=== PATIENT | male | born 1950 | race Caucasian/White ===

== ENCOUNTER 2017-03-14 16:23 | Emergency (ER) | payer OTHER ==
[2017-03-14 16:31] VITALS: TEMP 98.4
--- NOTE | 2017-03-14 16:36 | EDPHY ---
H & P Stated Complaint: Flu like sxs ~1mo;sent by PCP for eval;abnl labs today (see report) Time Seen by Provider: 03/14/17 16:35 Source: Patient - Medical/Surgical History Other PMH: cardiac stents - Social History Smoking Status: Current every day smoker Constitutional: Initial Vital Signs Temperature (C) 36.9 C 03/14/17 16:28 Heart Rate 69 03/14/17 16:28 Respiratory Rate 18 03/14/17 16:28 Blood Pressure 120/67 03/14/17 16:28 O2 Sat (%) 96 03/14/17 16:28 O2 Delivery Mode Room Air Allergies/Adverse Reactions: No Known Allergies Allergy (Unverified 03/14/17 16:27) Home Medications: Medication Instructions Recorded Atorvastatin Calcium [Lipitor 40 40 mg PO 03/14/17 mg (*)] Clopidogrel Bisulfate [Plavix (*)] 75 mg PO DAILY 03/14/17 Medical Decision Making - Diagnostics Imaging Results: Imaging Impressions Chest/Thorax CTA 03/14/17 16:51 Impression: 1. No evidence of thrombopulmonary embolic disease. 2. Right lower lobe mass-like consolidation with low attenuation may represent necrotic malignancy versus phlegmon evolving pulmonary abscess. 3. Small to moderate layering right pleural right pleural effusion. 4. 6 mm left lower lobe pulmonary nodule. Findings discussed with Emergency Department physician, Christiano Redd MD at 03/14/2017 18:00. Imaging: Discussed imaging studies w/ scallop cutter Radiologist ED Course/Re-evaluation: CHIEF COMPLAINT: Elevated d-dimer, cough, chest pain. HISTORY OF PRESENT ILLNESS: The patient is a 66-year-old male, sent by Dr. Bellamy because of chest pain and elevated D-dimer. The patient reports productive cough for the past month. He was placed on 3 various antibiotics for possible pneumonia, with no improvement of his symptoms. He saw Dr. Bellamy and had an elevated D-Dimer. He continues to complain of chest pain and productive cough with associated shortness of breath. He denies fever or chills. REVIEW OF SYSTEMS: A 10 point review of systems was performed and is negative with the exception of the elements mentioned in the history of present illness. PHYSICAL EXAM: HR, BP, O2 Sat, RR. Temp noted General Appearance: Alert, well hydrated, appropriate, and non-toxic appearing. Head: Atraumatic without scalp tenderness or obvious injury Eyes: Pupils equal, round, reactive to light and accommodation, EOMI, no trauma , no injection. Ears: Clear bilaterally, no perforation, normal landmarks Nose: Atraumatic, no rhinorrhea, clear. Throat: There is no erythema or exudates, no lesions, normal tonsils, mucus membranes moist. Neck: Supple, 2+ carotid upstroke, nontender, no lymphadenopathy. Respiratory: Coarse rhonchi through all desir with no focal decrease. Cardiovascular: Regular rate and rhythm, no murmurs, rubs, or gallops. Bilateral carotid, radial, dorsalis pedis, and posterior tibial pulses intact. Good capillary refill all extremities. Gastrointestinal: Abdomen is soft, nontender, non-distended, no masses, no rebound, no guarding, no peritoneal signs. Musculoskeletal: Normal active ROM of all extremities, atraumatic. Neurological: Alert, appropriate, and interactive. The patient has normal DTRs and non-focal cranial nerves, motor, sensory, and cerebellar exam. Skin: No rashes, good turgor, no nodules on palpation. Past medical history: Hypertension, Coronary artery disease with stents. Past surgical history: Cardiac stents. Family history: Noncontributory. Social history: Cigarette smoker (1-2 packs per day). Retired. . DIAGNOSTICS/PROCEDURES/CRITICAL CARE TIME: CT angiogram shows right lower lobe mass-like consolidation with low attenuation may represent necrotic malignancy versus phlegmon evolving pulmonary abscess. Small to moderate layering right pleural right pleural effusion. 4. 6 mm left lower lobe pulmonary nodule. DIFFERENTIAL DIAGNOSIS: The differential diagnosis for the patient's chest pain included but was not limited to myocardial ischemia, pulmonary embolus, chest wall pain, pleural inflammation, and pulmonary infectious causes. MEDICAL DECISION MAKING: Patient sent here by Dr. Bellamy with elevated D-dimer. The patient has had productive cough, chest pain, and increased shortness of breath for the past month. His symptoms have not improved despite antibiotic treatment. Plan for CT angiogram due to elevated d-dimer (as outpatient) and shortness of breath. ISTAT ordered. Patient received albuterol inhaler due to coarse rhonchi throughout. CT angiogram showed that the patient either has pulmonary mass or pulmonary abscess with post-obstructive pneumonia. The patient's chronic infection for the past month and inability to improve with antibiotics suggests possible mass or abscess, it is unclear. The patient is not hypoxic 95% on room air, vitals are stable, patient is not toxic appearing. 6:15 p.m.: I spoke to Dr. Adames, Pulmonology, he will see the patient in his office tomorrow. 6:20 p.m.: I spoke to Dr. Bellamy's CONDENSER OPERATOR, she is aware of the findings. - Data Points Laboratory Results: 03/14/17 17:05 POC Hgb 15.3 gm/dL gm/dL (13.7-17.5) POC Hct 45 % % (40-51) POC Sodium 138 mEq/L mEq/L (134-144) POC Potassium 3.7 mEq/L mEq/L (3.3-5.0) POC Chloride 103 mEq/L mEq/L (97-110) POC BUN 14 mg/dL mg/dL (7-23) POC Creatinine 0.7 mg/dL mg/dL (0.7-1.3) POC Glucose 81 mg/dL mg/dL (70-100) Medications Given: Discontinued Medications Albuterol/Ipratropium (Duoneb) 3 ml IH EDNOW ONE Stop: 03/14/17 16:51 Last Admin: 03/14/17 16:56 Dose: 3 ml Point of Care Test Results: 03/14/17 17:05 POC Sodium 138 POC Potassium 3.7 POC Chloride 103 POC BUN 14 POC Creatinine 0.7 POC Glucose 81 Departure - Departure Disposition: Home, Routine, Self-Care Clinical Impression: post obstructive pneumonia Pneumonia Qualifiers: Pneumonia type: due to unspecified organism Laterality: right Lung location: unspecified part of lung Qualified Code(s): J18.9 - Pneumonia, unspecified organism Condition: Good Instructions: Pneumonia (ED) Additional Instructions: Follow up with the test lead application testing Dr. Adames tomorrow. His office will call you to schedule an appointment. If you do not hear from them, please call them. Referrals: DREW BELLAMY [Primary Care Provider] - As per Instructions Logan Adames MD [Medical Doctor] - As per Instructions Report Scribed for: Christiano Redd Report Scribed by: Josephine Castañeda Date of Report: 03/14/17 Time of Report: 16:53
[2017-03-14] MEDS ORDERED: IPRATROPIUM/ALBUTEROL 3 ML DEYVIAL IH ONE (16:50)
[2017-03-14] MEDS ORDERED: IOPAMIDOL (ISOVUE 370) 100 ML BTL IV ONE (17:02)
[2017-03-14 18:38] VITALS: BP 118/70; PULSE 64; RESP 17; O2SAT 94
== END 2017-03-14 18:38 | disposition home or self-care (01) ==
DX: J18.9 Pneumonia, unspecified organism (principal); F17.200 Nicotine dependence, unspecified, uncomplicated; Z95.5 Presence of coronary angioplasty implant and graft
CPT/HCPCS: 71275; 99285; Q9967; 82947-QW

== ENCOUNTER 2017-03-31 13:04 | Inpatient (IN) | payer OTHER ==
[2017-03-31 13:21] LABS: % IMMATURE GRANULYOCYTES 0.7 % (0.0-1.1); ADD DIFF? NO; ADD MORPH? NO; ADD SCAN? NO; ATYPICAL LYMPHOCYTE FLAG 0 (0-99); FRAGMENT RBC FLAG 0 (0-99); HEMATOCRIT 44.5 % (40.0-51.0); HEMOGLOBIN 15.2 g/dL (13.7-17.5); LEFT SHIFT FLG 0 (0-99); LIPEMIA HEMOLYSIS FLAG 90 (0-99); MEAN CELL HEMOGLOBIN 32.4 pg (27.9-34.1); MEAN CELL HEMOGLOBIN CONCENTR. 34.2 g/dL (32.4-36.7); MEAN CELL VOLUME 94.9 fL (81.5-99.8); MEAN PLATELET VOLUME 8.8 fL (8.7-11.7); PLATELET CLUMPS FLAG 10 (0-99); PLATELET COUNT 387 10^3/uL (150-400); RED BLOOD CELL COUNT 4.69 10^6/uL (4.40-6.38); RED CELL DISTRIBUTION WIDTH 13.1 % (11.5-15.2)
--- NOTE | 2017-03-31 13:31 | CPEKG ---
Heart Rate: 77 RR Interval: 779 P-R Interval: 124 QRSD Interval: 84 QT Interval: 372 QTC Interval: 421 P Clifton: 32 QRS Clifton: 54 T Wave Clifton: 7 EKG Severity - NORMAL ECG - EKG Impression: SINUS RHYTHM Electronically Signed By: Khang Shrestha 31-Mar-2017 14:09:08
[2017-03-31 13:33] LABS: ALANINE AMINOTRANSFERASE 174 IU/L (21-72); ALBUMIN 3.5 g/dL (3.5-5.0); ALKALINE PHOSPHATASE 185 IU/L (38-126); ANION GAP 16 mEq/L (8-16); ASPARTATE AMINOTRANSFERASE 91 IU/L (17-59); BILIRUBIN,TOTAL 0.7 mg/dL (0.1-1.4); CALCIUM 9.2 mg/dL (8.5-10.4); CARBON DIOXIDE 22 mEq/l (22-31); CHLORIDE 102 mEq/L (97-110); CREATININE 0.8 mg/dL (0.7-1.3); GLOMERULAR FILTRATION RATE > 60; GLUCOSE 125 mg/dL (70-100); POTASSIUM 4.4 mEq/L (3.5-5.2); SODIUM 140 mEq/L (134-144); TOTAL PROTEIN 6.2 g/dL (6.3-8.2)
[2017-03-31 13:43] LABS: TROPONIN I < 0.012 ng/mL (0.000-0.034)
[2017-03-31] MEDS ORDERED: HYDROmorphONE/DILAUDID 1 MG/ML INJ IVP ONE ×2 (14:01→15:19)
--- NOTE | 2017-03-31 14:08 | EDPHY ---
H & P Stated Complaint: CP, SOB, hx lung mass Time Seen by Provider: 03/31/17 13:42 HPI/ROS: CHIEF COMPLAINT: Right-sided rib pain HISTORY OF PRESENT ILLNESS: The patient is a 66-year-old man with a history of smoking and COPD as well as cardiac disease with 2 stents on Plavix who comes to the emergency department brought by EMS for increasing right-sided chest pain. The patient has had chest pain for the last several months. He was seen here a week ago after positive D-dimer with his primary and had a CT scan done that revealed a 4 x 3 cm right-sided lung mass. He followed up with Dr. Tiago Ray from pulmonology who scheduled a bronchoscopy and pleurocentesis on the of this month. Over the last 24 hr the patient states that his pain has become unbearable. He cannot take normal breaths. He has not had a fever. His cough is not worsened. He does not feel short of breath. He also feels that he may have some swelling around his ankles. No chest pain or tightness. REVIEW OF SYSTEMS: Constitutional: denies: chills, fever, recent illness, recent injury EENTM: denies: blurred vision, double vision, nose congestion Respiratory: Right-sided chest pain Cardiac: denies: chest pain, irregular heart rate, lightheadedness, palpitations Gastrointestinal/Abdominal: denies: abdominal pain, diarrhea, nausea, vomiting, blood streaked stools Genitourinary: denies: dysuria, frequency, hematuria, pain Musculoskeletal: denies: joint pain, muscle pain Skin: denies: lesions, rash, jaundice, bruising Neurological: denies: headache, numbness, paresthesia, tingling, dizziness, weakness Hematologic/Lymphatic: denies: blood clots, easy bleeding, easy bruising Immunologic/allergic: denies: HIV/AIDS, transplant EXAM: GENERAL: Well-appearing, well-nourished and in no acute distress. HEAD: Atraumatic, normocephalic. EYES: Pupils equal round and reactive to light, extraocular movements intact, sclera anicteric, conjunctiva are normal. ENT: TMs normal, nares patent, oropharynx clear without exudates. Moist mucous membranes. NECK: Normal range of motion, supple without lymphadenopathy or JVD. LUNGS: Distant breath sounds on the right, No wheezes rales or rhonchi. HEART: Regular rate and rhythm without murmurs, rubs or gallops. ABDOMEN: Soft, nontender, normoactive bowel sounds. No guarding, no rebound. No masses appreciated. BACK: No CVA tenderness, no spinal tenderness, step-offs or deformities EXTREMITIES: Normal range of motion, no pitting or edema. No clubbing or cyanosis. NEUROLOGICAL: Cranial nerves II through XII grossly intact. Normal speech, normal gait. 5/5 strength, normal movement in all extremities, normal sensation PSYCH: Normal mood, normal affect. SKIN: Warm, dry, normal turgor, no visible rashes or lesions. Source: Patient Exam Limitations: No limitations - Medical/Surgical History Hx Asthma: No Hx Chronic Respiratory Disease: No Hx Diabetes: No Hx Cardiac Disease: Yes Hx Renal Disease: No Hx Cirrhosis: No Hx Alcoholism: No Hx HIV/AIDS: No Hx Splenectomy or Spleen Trauma: No Other PMH: cardiac stents, MIx2, Lung mass - Family History Significant Family History: No pertinent family hx - Social History Smoking Status: Heavy smoker Alcohol Use: Sober Drug Use: None Constitutional: Initial Vital Signs Temperature (C) 37.1 C 03/31/17 13:12 Heart Rate 80 03/31/17 13:12 Respiratory Rate 30 H 03/31/17 13:12 Blood Pressure 141/89 H 03/31/17 13:12 O2 Sat (%) 88 L 03/31/17 13:12 O2 Delivery Mode Nasal Cannula Allergies/Adverse Reactions: No Known Allergies Allergy (Verified 03/31/17 13:12) Home Medications: Medication Instructions Recorded Clopidogrel Bisulfate [Plavix (*)] 75 mg PO DAILY 03/14/17 Aspirin [Aspirin 81mg (*)] 81 mg PO DAILY 03/31/17 Atorvastatin Calcium [Lipitor 10 10 mg PO HS 03/31/17 mg (*)] Medical Decision Making - Diagnostics EKG Interpretation: An EKG obtained and was read and documented in trace view. Please see trace view for full reading and report. Sinus rhythm, no acute ischemic changes, normal amplitude Imaging Results: Imaging Impressions Chest X-Ray 03/31/17 14:05 Impression: Worsening pulmonary consolidation and atelectasis on the right, with enlarging right pleural effusion compared to March 14. I discussed results with Dr. Khang Rozeski at 1545 hours. Imaging: Discussed imaging studies w/ call center representative Radiologist Procedures: Bedside echo, no significant pericardial effusion seen. ED Course/Re-evaluation: 3:00 p.m. we discussed the test results. His effusion is significantly larger. He desaturates to 87% on room air. He will need to be admitted for pain control, desaturations and thoracentesis. I have paged interventional Radiology and hospital service. 3:20 p.m. I discussed the case with Dr. Gina Avila who will admit to medical service. Dr. Hobbs is in a procedure but will call back when he is done. I discussed the case with Dr. Hobbs who would prefer to wait a day or 2 for the patient's Plavix to wear off. Differential Diagnosis: Partial list of the Differential diagnosis considered include but were not limited to; pleural effusion, pneumonia and although unlikely based on the history and physical exam, I also considered acute coronary disease, PE, dissection. - Data Points Laboratory Results: Laboratory Results 03/31/17 13:00 03/31/17 13:00 03/31/17 03/31/17 03/31/17 13:00 13:00 13:00 WBC RBC Hgb Hct MCV MCH MCHC RDW Plt Count MPV Neut % (Auto) Lymph % (Auto) [place] % (Auto) Eos % (Auto) Baso % (Auto) Nucleat RBC Rel Count Absolute Neuts (auto) Absolute Lymphs (auto) Absolute Monos (auto) Absolute Eos (auto) Absolute Basos (auto) Absolute Nucleated RBC Immature Gran % Immature Gran # PT 15.2 SEC H SEC (12.0-15.0) INR 1.18 H (0.83-1.16) APTT 26.2 SEC SEC (23.0-38.0) Sodium 140 mEq/L mEq/L (134-144) Potassium 4.4 mEq/L mEq/L (3.5-5.2) Chloride 102 mEq/L mEq/L (97-110) Carbon Dioxide 22 mEq/l mEq/l (22-31) Anion Gap 16 mEq/L mEq/L (8-16) BUN 13 mg/dL mg/dL (7-23) Creatinine 0.8 mg/dL mg/dL (0.7-1.3) Estimated GFR > 60 Glucose 125 mg/dL H mg/dL (70-100) Calcium 9.2 mg/dL mg/dL (8.5-10.4) Total Bilirubin 0.7 mg/dL mg/dL 0.7 mg/dL mg/dL (0.1-1.4) (0.1-1.4) Conjugated Bilirubin 0.4 mg/dL mg/dL (0.0-0.5) Unconjugated Bilirubin 0.3 mg/dL mg/dL (0.0-1.1) AST 93 IU/L H IU/L 91 IU/L H IU/L (17-59) (17-59) ALT 171 IU/L H IU/L 174 IU/L H IU/L (21-72) (21-72) Alkaline Phosphatase 188 IU/L H IU/L 185 IU/L H IU/L (38-126) (38-126) Troponin I < 0.012 ng/mL ng/mL (0.000-0.034) Total Protein 6.2 g/dL L g/dL 6.2 g/dL L g/dL (6.3-8.2) (6.3-8.2) Albumin 3.5 g/dL g/dL 3.5 g/dL g/dL (3.5-5.0) (3.5-5.0) Lipase 57 IU/L IU/L (23-300) 03/31/17 13:00 WBC 14.85 10^3/uL H 10^3/uL (3.80-9.50) RBC 4.69 10^6/uL 10^6/uL (4.40-6.38) Hgb 15.2 g/dL g/dL (13.7-17.5) Hct 44.5 % % (40.0-51.0) MCV 94.9 fL fL (81.5-99.8) MCH 32.4 pg pg (27.9-34.1) MCHC 34.2 g/dL g/dL (32.4-36.7) RDW 13.1 % % (11.5-15.2) Plt Count 387 10^3/uL 10^3/uL (150-400) MPV 8.8 fL fL (8.7-11.7) Neut % (Auto) 84.9 % H % (39.3-74.2) Lymph % (Auto) 8.2 % L % (15.0-45.0) [place] % (Auto) 5.4 % % (4.5-13.0) Eos % (Auto) 0.3 % L % (0.6-7.6) Baso % (Auto) 0.5 % % (0.3-1.7) Nucleat RBC Rel Count 0.0 % % (0.0-0.2) Absolute Neuts (auto) 12.62 10^3/uL H 10^3/uL (1.70-6.50) Absolute Lymphs (auto) 1.22 10^3/uL 10^3/uL (1.00-3.00) Absolute Monos (auto) 0.80 10^3/uL 10^3/uL (0.30-0.80) Absolute Eos (auto) 0.04 10^3/uL 10^3/uL (0.03-0.40) Absolute Basos (auto) 0.07 10^3/uL 10^3/uL (0.02-0.10) Absolute Nucleated RBC 0.00 10^3/uL 10^3/uL (0-0.01) Immature Gran % 0.7 % % (0.0-1.1) Immature Gran # 0.10 10^3/uL 10^3/uL (0.00-0.10) PT INR APTT Sodium Potassium Chloride Carbon Dioxide Anion Gap BUN Creatinine Estimated GFR Glucose Calcium Total Bilirubin Conjugated Bilirubin Unconjugated Bilirubin AST ALT Alkaline Phosphatase Troponin I Total Protein Albumin Lipase Medications Given: Oxycodone HCl (Oxycodone Ir) 5 - 10 mg PO Q4 PRN PRN Reason: Pain, Severe Able to Take PO Stop: 04/10/17 16:34 Last Admin: 03/31/17 18:02 Dose: 10 mg Discontinued Medications Hydromorphone HCl (Dilaudid) 1 mg IVP EDNOW ONE Stop: 03/31/17 14:02 Last Admin: 03/31/17 14:05 Dose: 1 mg Hydromorphone HCl (Dilaudid) 1 mg IVP EDNOW ONE Stop: 03/31/17 15:20 Last Admin: 03/31/17 15:23 Dose: 1 mg Sodium Chloride (Ns) 1,000 mls @ 0 mls/hr IV ONCE ONE; Wide Open PRN Reason: Protocol Stop: 03/31/17 14:34 Last Admin: 03/31/17 14:48 Dose: 1,000 mls Metoclopramide HCl (Reglan Injection) 10 mg IVP EDNOW ONE Stop: 03/31/17 14:34 Last Admin: 03/31/17 19:09 Dose: Not Given Departure - Departure Disposition: [facility] Acute Clinical Impression: Pleural effusion, right Condition: Fair
[2017-03-31 14:25] LABS: INR 1.18 (0.83-1.16); PROTIME(PATIENT) 15.2 SEC (12.0-15.0)
[2017-03-31 14:26] LABS: APTT 26.2 SEC (23.0-38.0)
[2017-03-31 14:31] LABS: ALBUMIN 3.5 g/dL (3.5-5.0); BILIRUBIN,TOTAL 0.7 mg/dL (0.1-1.4); BILIRUBIN-CONJUGATED 0.4 mg/dL (0.0-0.5); BILIRUBIN-UNCONJUGATED 0.3 mg/dL (0.0-1.1); TOTAL PROTEIN 6.2 g/dL (6.3-8.2)
[2017-03-31] MEDS ORDERED: METOCLOPRAMIDE 10 MG/2 ML VIAL IVP ONE (14:33)
[2017-03-31] MEDS ORDERED: NS 1,000 ML IV ONE (14:33)
[2017-03-31] MEDS ORDERED: LIDOCAINE 1% 300 MG/30 ML SDV ONE (15:43)
[2017-03-31] MEDS ORDERED: ACETAMINOPHEN 325 MG TAB PO PRN (16:35)
[2017-03-31] MEDS ORDERED: HYDROmorphone HCL/NS/PF 0.4 MG/2 ML SYR IVP PRN (16:35)
[2017-03-31] MEDS ORDERED: ONDANSETRON 4 MG/2 ML VIAL IVP PRN (16:35)
--- NOTE | 2017-03-31 17:39 | GHP ---
[f rep st] HISTORY AND PHYSICAL DATE OF ADMISSION: 03/31/2017 CHIEF COMPLAINT: Right-sided chest pain. HISTORY: Alfred is a 66-year-old male, who has had a mild right-sided chest pain for many months. He w as seen in the emergency room on March [address] scan of the chest that was negative for p ulmonary embolus but did show a mass. He saw Dr. Ray in the office as an outpatient and has a bron choscopy scheduled for April 05. He is on Plavix for history of coronary stents, May 2016 an d the plan was for him to be off Plavix for 5 days. His last dose of Plavix was yesterday morning. He now re-presents to the emergency room for severe worsening pain. For the last 24 hours the pain h as gone from mild to extraordinarily severe and intolerable. He has had tactile fevers at home but h as not measured them. He has had a productive cough for the last 6 weeks. He noticed new feet and a nkle edema. Pain is very pleuritic and he is now forced to take very shallow breaths. He has had 8 pounds unintentional weight loss and has had poor p.o. intake over the last month. PAST MEDICAL HISTORY: 1. COPD. 2. Coronary artery disease, status post stents, the first 4 years ago and more recently, in May 2016 at [facility]. MEDICATIONS: Please see computer record for full detailed list. ALLERGIES: No known drug allergies. SOCIAL HISTORY: He has been a smoker for 50 years, 1 pack per day. No alcohol. He lives alone. Hi s son lives in [place]. REVIEW OF SYSTEMS: Complete review of systems obtained. Review of systems negative on constitutiona l, HEENT, GI, pulmonary, cardiovascular, , hematology, skin, muscular, endocrine, psych, except for positives and negatives as noted in HPI. FAMILY HISTORY: Reviewed, noncontributory to presenting complaint. PHYSICAL EXAMINATION: GENERAL: Well-developed, well-nourished male, in no acute distress. VITAL SI GNS: Temperature 37.1, pulse 76, respirations 30, blood pressure 136/83, saturating 88% on room air. EYES: Normal conjunctivae. Pupils react to light. ENT: Normal ears and nose. Hearing intact. Normal teeth. Oropharynx moist. NECK: Trachea midline. No thyromegaly. CHEST: Normal effort. AKIKO NGS: Clear to auscultation bilaterally. CARDIOVASCULAR: Regular rhythm. No murmur. No lower extrem ity edema. ABDOMEN: Soft, nontender. No hepatosplenomegaly. SKIN: Warm, dry, intact. No rash. MUSCULOSKELETAL: No cyanosis or clubbing. Strength 5/5 upper and lower extremities. NEUROLOGIC: C ranial nerves intact. Normal sensation to light touch. PSYCH: Alert and oriented x3. Normal affec t. Normal judgment. Normal memory. LABORATORY DATA: White count 14.85, hematocrit 44.5, platelets 387. Sodium 140, potassium 4.4, chlo ride 102, bicarb 22, BUN 13, creatinine 0.8, glucose 115, AST 91, ALT 174, alkaline phosphatase is 18 5, troponins negative. INR is 1.18. EKG viewed by me. My personal interpretation is normal sinus rhythm. No ST or T wave changes. Ches t x-ray shows a moderate right-sided effusion. Old chart reviewed. CTA of the chest done February 242016, there was no PE. He has a right lower lobe masslike consolidation. Differential diagnosis i s necrotic malignancy versus phlegmon versus pulmonary abscess and at that time, he had only a small to moderate effusion. ASSESSMENT/PLAN: 1. Right lower lobe masslike consolidation. Differential diagnosis is a necrotic malignancy versus a pulmonary abscess. He has not yet been treated with antibiotics as an outpatient. So presumably t his is more suspicious for malignancy than infection. I have spoken with Dr. Cobian. We will make him n.p.o. after midnight with plan for bronchoscopy. Will continue to hold off on antibiotics until thi s can be further clarified as he is quite nontoxic appearing at this time. He does, however, have a leukocytosis so I will check blood cultures. Rule out sepsis and consider empiric antibiotics if inf ection becomes more probable. 2. Increasing right-sided pleural effusion. He needs a thoracentesis but IR is recommending he be o ff Plavix for 3 days unless it becomes emergent. 3. Acute respiratory failure as evidenced by respiratory rate of 30 and 88% on room air on presentat ion. He is now stable on nasal cannula oxygen. 4. Tobacco dependence. Will offer nicotine patch. 5. Increased liver function tests. Hepatic metastasis is a possibility. We will check an abdominal ultrasound. CODE STATUS: DNR. ADMISSION STATUS: 1. Will admit to inpatient as he is medically complex. Anticipate greater than 2 midnights for diag nosis. 2. Deep venous thrombosis prophylaxis. He has pending procedures so will hold off for now. /[id number]/MODL
[2017-03-31] MEDS: oxyCODONE IR 5 MG TAB PO PRN (18:02)
[2017-03-31 19:26] LABS: LACTATE DEHYDROGENASE 481 IU/L (313-618)
[2017-03-31] MEDS: traMADol 50 MG TAB PO PRN (20:37)
[2017-03-31] MEDS: ATORVASTATIN CALCIUM 10 MG TAB PO SCH (20:37)
[2017-04-01] MEDS: oxyCODONE IR 5 MG TAB PO PRN ×4 (00:33→22:42)
[2017-04-01 05:24] LABS: ABSOLUTE IMMATURE GRANULOCYTES 0.28 10^3/uL (0.00-0.10); ADD DIFF? NO; ADD MORPH? NO; ADD SCAN? NO; ATYPICAL LYMPHOCYTE FLAG 0 (0-99); FRAGMENT RBC FLAG 0 (0-99); HEMATOCRIT 43.7 % (40.0-51.0); HEMOGLOBIN 14.8 g/dL (13.7-17.5); LEFT SHIFT FLG 10 (0-99); LIPEMIA HEMOLYSIS FLAG 90 (0-99); MEAN CELL HEMOGLOBIN 32.5 pg (27.9-34.1); MEAN CELL HEMOGLOBIN CONCENTR. 33.9 g/dL (32.4-36.7); MEAN PLATELET VOLUME 8.9 fL (8.7-11.7); PLATELET CLUMPS FLAG 0 (0-99); PLATELET COUNT 344 10^3/uL (150-400); RED BLOOD CELL COUNT 4.55 10^6/uL (4.40-6.38); RED CELL DISTRIBUTION WIDTH 13.2 % (11.5-15.2)
[2017-04-01 05:27] LABS: ALANINE AMINOTRANSFERASE 119 IU/L (21-72); ALBUMIN 2.7 g/dL (3.5-5.0); ALKALINE PHOSPHATASE 148 IU/L (38-126); ANION GAP 9 mEq/L (8-16); ASPARTATE AMINOTRANSFERASE 56 IU/L (17-59); BILIRUBIN,TOTAL 0.4 mg/dL (0.1-1.4); BILIRUBIN-CONJUGATED 0.3 mg/dL (0.0-0.5); BILIRUBIN-UNCONJUGATED 0.1 mg/dL (0.0-1.1); CALCIUM 8.6 mg/dL (8.5-10.4); CARBON DIOXIDE 22 mEq/l (22-31); CHLORIDE 106 mEq/L (97-110); CREATININE 0.8 mg/dL (0.7-1.3); GLOMERULAR FILTRATION RATE > 60; GLUCOSE 113 mg/dL (70-100); POTASSIUM 5.5 mEq/L (3.5-5.2); SODIUM 137 mEq/L (134-144); TOTAL PROTEIN 4.9 g/dL (6.3-8.2)
[2017-04-01 09:13] LABS: POTASSIUM 4.7 mEq/L (3.5-5.2)
--- NOTE | 2017-04-01 10:19 | HOSPPROG ---
Hospitalist Progress Note Assessment/Plan: RLL consolidation / ?mass - Consider necrotic malignancy versus pulmonary abscess. 3.5 LPM O2 with tachypnea and increased pain. BCx's pending. -discussed with ID, will broaden to Ertapenem for anaerobic coverage -discussed with pulm, likely needs bronch at some point Pleural effusion - some concern for empyema with increasing wbc's and worsening clinical condition -discussed with IR, off plavix >48 hrs, will proceed with thora today due to worsening condition -pleural fluid with 8,700 wbc's, 98% Pourer, gram stain pending - broaden to Ertapenem as above. Surgery contacted regarding consult to consider need for VATS CAD with stenting in 05/2016 - he had a NIYA placed in LAD in 05/2016. -ASA and Plavix held for planned procedures -will d/w Dr. Tinoco' team, ok to be off plavix x5 days -resume ASA in am COPD - No wheezing, prn nebs Tobacco abuse - encourage cessation DNR DVT PPLX - Lovenox Dispo - cont inpt Subjective: Pt has increased pain, coughing quite a bit, more tachypneic and feels sicker. No fevers. +SOB. Objective: Vital Signs Temp Pulse Resp BP Pulse Ox 36.9 C 70 29 H 117/73 90 L 04/01/17 08:08 04/01/17 08:08 04/01/17 08:08 04/01/17 08:08 04/01/17 08:08 Laboratory Results 04/01/17 05:02 04/01/17 08:55 03/31/17 04/01/17 04/02/17 05:59 05:59 05:59 Intake Total 1000 Output Total 275 Balance 725 PT 15.2 SEC (12.0-15.0) H 03/31/17 13:00 INR 1.18 (0.83-1.16) H 03/31/17 13:00 - Physical Exam Constitutional: no apparent distress Eyes: PERRL Ears, Nose, Mouth, Throat: moist mucous membranes Cardiovascular: regular rate and rhythym, no murmur, rub, or gallop Respiratory: no respiratory distress, other (diminished air movement in right lung) Gastrointestinal: normoactive bowel sounds, soft, non-tender abdomen Skin: warm Musculoskeletal: full muscle strength Neurologic: AAOx3 Psychiatric: interacting appropriately ICD10 Worksheet Patient Problems: Problems Problem Status Onset Pleural effusion, right Acute
[2017-04-01] MEDS ORDERED: AZITHROMYCIN 250 MG TAB PO SCH (10:30)
[2017-04-01] MEDS: NICOTINE 14 MG/24 HR PATCH TD SCH (10:32)
--- NOTE | 2017-04-01 10:57 | PDMN ---
Medical Necessity Medical necessity: est los>2mn for RLL masslike consolidation , necrotic malignancy vs pulmonary abscess, increasing R pleural effusion, acute resp failure and elevated LFT's; admit for bronch, r/o sepsis, follow cx's, thoracentesis when off Plavix x 3 days; comorbid COPD, CAD; per order and H&P 03/31/17
--- NOTE | 2017-04-01 11:47 | ASMTCMCOM ---
CM Note CM Note Notes: Reviewed chart and discussed w/RN. Pt admitted w/RLL mass. He will go for bonchoscopy today. He normally lives alone, has son in [place]. DC needs not clear yet. CM will follow. Date Signed: 04/01/2017 11:46 AM Electronically Signed By:Lien Levin RN
[2017-04-01] MEDS ORDERED: LIDOCAINE 1% 300 MG/30 ML SDV ONE (12:41)
[2017-04-01 15:06] LABS: LACTATE DEHYDROGENASE 372 IU/L (313-618)
[2017-04-01 15:26] LABS: LD, PLEURAL FLUID 1276 IU/L
[2017-04-01] MEDS: ERTAPENEM 1 GM VIAL IVP SCH (18:44)
[2017-04-01] MEDS: ATORVASTATIN CALCIUM 10 MG TAB PO SCH (20:22)
[2017-04-02] MEDS: oxyCODONE IR 5 MG TAB PO PRN ×4 (04:41→23:19)
[2017-04-02 05:30] LABS: % IMMATURE GRANULYOCYTES 0.8 % (0.0-1.1); ABSOLUTE IMMATURE GRANULOCYTES 0.21 10^3/uL (0.00-0.10); ADD DIFF? NO; ADD MORPH? NO; ADD SCAN? NO; ATYPICAL LYMPHOCYTE FLAG 0 (0-99); FRAGMENT RBC FLAG 0 (0-99); HEMOGLOBIN 13.4 g/dL (13.7-17.5); LEFT SHIFT FLG 10 (0-99); LIPEMIA HEMOLYSIS FLAG 80 (0-99); MEAN CELL HEMOGLOBIN 32.2 pg (27.9-34.1); MEAN CELL HEMOGLOBIN CONCENTR. 33.5 g/dL (32.4-36.7); MEAN CELL VOLUME 96.2 fL (81.5-99.8); PLATELET CLUMPS FLAG 0 (0-99); PLATELET COUNT 357 10^3/uL (150-400); RED BLOOD CELL COUNT 4.16 10^6/uL (4.40-6.38); RED CELL DISTRIBUTION WIDTH 13.2 % (11.5-15.2)
[2017-04-02 05:43] LABS: ALANINE AMINOTRANSFERASE 103 IU/L (21-72); ALBUMIN 2.6 g/dL (3.5-5.0); ALKALINE PHOSPHATASE 158 IU/L (38-126); ANION GAP 11 mEq/L (8-16); ASPARTATE AMINOTRANSFERASE 59 IU/L (17-59); BILIRUBIN,TOTAL 0.2 mg/dL (0.1-1.4); CALCIUM 8.7 mg/dL (8.5-10.4); CARBON DIOXIDE 25 mEq/l (22-31); CHLORIDE 101 mEq/L (97-110); CREATININE 0.8 mg/dL (0.7-1.3); GLOMERULAR FILTRATION RATE > 60; GLUCOSE 98 mg/dL (70-100); SODIUM 137 mEq/L (134-144); TOTAL PROTEIN 4.9 g/dL (6.3-8.2)
[2017-04-02 06:21] LABS: PROCALCITONIN 0.92 ng/mL (0.02-0.10)
--- NOTE | 2017-04-02 09:57 | PDGENHP ---
History and Physical - Chief Complaint pleural effusion, lung mass - History of Present Illness Asked to evaluate the patients effusion, lung mass and Sx. Patient just underwent thoracentesis and had 1.5L drawn off. Had a CT scan done in late February which showed layering efusion. Admitted with R sided CP and effusion. Patient feels well now, states that pain has resolved and that he is breathing much easier. Still continues to smoke about 1PPD. History Information - Allergies/Home Medication List Allergies/Adverse Reactions: No Known Allergies Allergy (Verified 03/31/17 13:12) Home Medications: Clopidogrel Bisulfate [Plavix (*)] 75 mg PO DAILY 03/14/17 [Last Taken 03/30/17] Aspirin [Aspirin 81mg (*)] 81 mg PO DAILY 03/31/17 [Last Taken 03/30/17] Atorvastatin Calcium [Lipitor 10 mg (*)] 10 mg PO HS 03/31/17 [Last Taken ] I have personally reviewed and updated: family history, medical history, social history, surgical history Past Medical History: COPD, CAD with stents on plavix and ASA - Surgical History Additional surgical history: no chest surgeries - Family History Positive for: non-pertinent - Social History Smoking Status: Heavy smoker Alcohol Use: Sober Drug Use: None Review of Systems Review of Systems: ROS: 10pt was reviewed & negative except for what was stated in HPI & below Physical Exam Physical Exam: Temp Pulse Resp BP Pulse Ox 36.7 C 64 16 90/54 L 93 04/02/17 08:55 04/02/17 08:55 04/02/17 08:55 04/02/17 08:55 04/02/17 08:55 O2 (L/minute) 3 Constitutional: no apparent distress, appears nourished, not in pain Eyes: PERRL, anicteric sclera, EOMI Ears, Nose, Mouth, Throat: moist mucous membranes, hearing normal, ears appear normal, no oral mucosal ulcers Cardiovascular: regular rate and rhythym, no murmur, rub, or gallop, No edema Respiratory: other (distant R sided lung sounds inferiorly, otherwise clear ) Gastrointestinal: normoactive bowel sounds, soft, non-tender abdomen, no palpable masses Genitourinary: no bladder fullness, no bladder tenderness Skin: warm, normal color, no rashes or abrasions, no fluctuance, no induration, No mottled Musculoskeletal: full muscle strength, no muscle tenderness, normal joint ROM, no joint effusions Psychiatric: interacting appropriately, not anxious, not encephalopathic, thought process linear Lymph, Heme, Immunologic: no cervical LAD, no supraclavicular LAD Lab Data & Imaging Review 04/02/17 04:56 04/02/17 04:56 WBC 25.67 10^3/uL (3.80-9.50) H 04/02/17 04:56 RBC 4.16 10^6/uL (4.40-6.38) L 04/02/17 04:56 Hgb 13.4 g/dL (13.7-17.5) L 04/02/17 04:56 Hct 40.0 % (40.0-51.0) 04/02/17 04:56 MCV 96.2 fL (81.5-99.8) 04/02/17 04:56 MCH 32.2 pg (27.9-34.1) 04/02/17 04:56 MCHC 33.5 g/dL (32.4-36.7) 04/02/17 04:56 RDW 13.2 % (11.5-15.2) 04/02/17 04:56 Plt Count 357 10^3/uL (150-400) 04/02/17 04:56 MPV 9.0 fL (8.7-11.7) 04/02/17 04:56 Neut % (Auto) 88.1 % (39.3-74.2) H 04/02/17 04:56 Lymph % (Auto) 4.6 % (15.0-45.0) L 04/02/17 04:56 Marshall % (Auto) 6.0 % (4.5-13.0) 04/02/17 04:56 Eos % (Auto) 0.2 % (0.6-7.6) L 04/02/17 04:56 Baso % (Auto) 0.3 % (0.3-1.7) 04/02/17 04:56 Nucleat RBC Rel Count 0.0 % (0.0-0.2) 04/02/17 04:56 Absolute Neuts (auto) 22.62 10^3/uL (1.70-6.50) H 04/02/17 04:56 Absolute Lymphs (auto) 1.17 10^3/uL (1.00-3.00) 04/02/17 04:56 Absolute Monos (auto) 1.54 10^3/uL (0.30-0.80) H 04/02/17 04:56 Absolute Eos (auto) 0.05 10^3/uL (0.03-0.40) 04/02/17 04:56 Absolute Basos (auto) 0.08 10^3/uL (0.02-0.10) 04/02/17 04:56 Absolute Nucleated RBC 0.00 10^3/uL (0-0.01) 04/02/17 04:56 Immature Gran % 0.8 % (0.0-1.1) 04/02/17 04:56 Immature Gran # 0.21 10^3/uL (0.00-0.10) H 04/02/17 04:56 PT 15.2 SEC (12.0-15.0) H 03/31/17 13:00 INR 1.18 (0.83-1.16) H 03/31/17 13:00 APTT 26.2 SEC (23.0-38.0) 03/31/17 13:00 VBG Lactic Acid 1.8 mmol/L (0.7-2.1) 03/31/17 19:54 Sodium 137 mEq/L (134-144) 04/02/17 04:56 Potassium 5.0 mEq/L (3.5-5.2) 04/02/17 04:56 Chloride 101 mEq/L (97-110) 04/02/17 04:56 Carbon Dioxide 25 mEq/l (22-31) 04/02/17 04:56 Anion Gap 11 mEq/L (8-16) 04/02/17 04:56 BUN 24 mg/dL (7-23) H 04/02/17 04:56 Creatinine 0.8 mg/dL (0.7-1.3) 04/02/17 04:56 Estimated GFR > 60 04/02/17 04:56 Glucose 98 mg/dL (70-100) 04/02/17 04:56 Calcium 8.7 mg/dL (8.5-10.4) 04/02/17 04:56 Total Bilirubin 0.2 mg/dL (0.1-1.4) 04/02/17 04:56 Conjugated Bilirubin 0.3 mg/dL (0.0-0.5) 04/01/17 05:02 Unconjugated Bilirubin 0.1 mg/dL (0.0-1.1) 04/01/17 05:02 AST 59 IU/L (17-59) 04/02/17 04:56 ALT 103 IU/L (21-72) H 04/02/17 04:56 Alkaline Phosphatase 158 IU/L (38-126) H 04/02/17 04:56 Lactate Dehydrogenase 372 IU/L (313-618) 04/01/17 08:55 Troponin I < 0.012 ng/mL (0.000-0.034) 03/31/17 13:00 Total Protein 4.9 g/dL (6.3-8.2) L 04/02/17 04:56 Albumin 2.6 g/dL (3.5-5.0) L 04/02/17 04:56 Lipase 57 IU/L (23-300) 03/31/17 13:00 Procalcitonin 0.92 ng/mL (0.02-0.10) H 04/02/17 04:56 Fluid pH Cancelled 04/01/17 13:20 Fluid Meso/Macro/Marshall % 2 % 04/01/17 13:20 Fl Pathologist Review Rayne DONNELLY MD 04/01/17 13:20 Fluid Total Protein Cancelled 04/01/17 13:20 Pleural Fluid Source PLEURAL 04/01/17 13:20 Pleural Color ORANGE (STRAW/YELL) H 04/01/17 13:20 Pleural Appearance CLOUDY (CLEAR) H 04/01/17 13:20 Pleural pH 6.7 (6.8-7.6) L 04/01/17 13:20 Pleural WBC 8730 /mm3 04/01/17 13:20 Pleural RBC 6804 /MM3 04/01/17 13:20 Pleural Neutrophils 98 % 04/01/17 13:20 Pleural Total Protein 3.9 g/dL 04/01/17 13:20 Pleural LDH 1276 IU/L 04/01/17 13:20 Pleural Glucose < 20 mg/dL (55-113) L 04/01/17 13:20 Hepatitis A IgM Ab NEGATIVE (NEGATIVE) 04/01/17 05:02 Hep Bs Antigen NEGATIVE (NEGATIVE) 04/01/17 05:02 Hep B Core IgM Ab NEGATIVE (NEGATIVE) 04/01/17 05:02 Hepatitis C Antibody NEGATIVE (NEGATIVE) 04/01/17 05:02 Cytology RECEIVED 04/01/17 13:20 Visualized and Interpreted imaging results: Yes Interpretation: CXR s/p thora shows persistent fluid collection, improved. CT from February shows poss large mass in R side, layering colection Assessment & Plan Assessment: Pleural effusion, right (Acute) Plan: 66yo heavy smoker, layering effusion, likely lung mass concerning for cancer - Reviewed the patients imaging as well as results from thoracentesis. fluid analysis definitely looks like parapneumonic effusion, CT shows likely large mass concerning for Ca given the patients Hx of smoking - thora appears to be successful, still some residual fluid but clinically improved - If patient clinically declines would plan to place large bore CT fist as there was not an overly large collection on CT and likely isnt based on most recent CXR. Would use this as barometer for if he needs VATs - Needs bronch, this will allow analysis of mass and to better rule in or out cancer - will await cytology from chest fluid, if Ca may not be something that is resectable in first place but need to make diagnosis and stage appropriately.
[2017-04-02] MEDS: AMPICILLIN/SULBACTAM 3 GM in NS 100 ML IV SCH ×3 (10:20→23:20)
[2017-04-02] MEDS: ERTAPENEM 1 GM VIAL IVP SCH (10:20)
[2017-04-02] MEDS: NICOTINE 14 MG/24 HR PATCH TD SCH (10:20)
[2017-04-02] MEDS: ASPIRIN 81 MG CHEWABLE TAB PO SCH ×2 (10:20→10:28)
--- NOTE | 2017-04-02 10:34 | HOSPPROG ---
Hospitalist Progress Note Assessment/Plan: RLL consolidation / ?mass / post-obstructive PNA - Consider necrotic malignancy versus pulmonary abscess. BCx's pending. Cytology on pleural fluid pending. This may yield a diagnosis, but could still be days from results and we are currently in a plavix-free window regarding bronch timing. -discussed with ID, cover with Unasyn -discussed with pulm. 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 3 LPM CAD with stenting in 05/2016 - he had a NIYA placed in LAD in 05/2016. -Plavix held for planned procedures, last dose 03/30 -will d/w Dr. Tinoco' team, ok to be off plavix x5 days -resume ASA COPD - No wheezing, prn nebs Tobacco abuse - encourage cessation DNR DVT PPLX - Lovenox Dispo - cont inpt Subjective: Feels a little better since thora yesterday. No fevers overnight. Still coughing with some pain. No N/V. Decreased appetite. Objective: Vital Signs Temp Pulse Resp BP Pulse Ox 36.7 C 64 16 90/54 L 93 04/02/17 08:55 04/02/17 08:55 04/02/17 08:55 04/02/17 08:55 04/02/17 08:55 Microbiology 04/01/17 13:20 Gram Stain - Final Pleural Fluid - Aspirate Laboratory Results 04/02/17 04:56 04/02/17 04:56 04/01/17 04/02/17 04/03/17 05:59 05:59 05:59 Intake Total 1000 700 Output Total 275 2050 Balance 725 -1350 PT 15.2 SEC (12.0-15.0) H 03/31/17 13:00 INR 1.18 (0.83-1.16) H 03/31/17 13:00 - Physical Exam Constitutional: no apparent distress Eyes: PERRL Ears, Nose, Mouth, Throat: moist mucous membranes Cardiovascular: regular rate and rhythym Respiratory: no respiratory distress, other (diminished breath sound RLL) Gastrointestinal: normoactive bowel sounds, soft, non-tender abdomen Skin: warm Musculoskeletal: full muscle strength Neurologic: AAOx3 Psychiatric: interacting appropriately ICD10 Worksheet Patient Problems: Problems Problem Status Onset Pleural effusion, right Acute
--- NOTE | 2017-04-02 11:13 | GCON ---
[f rep st] CONSULTATION INFECTIOUS DISEASE CONSULTATION DATE OF CONSULTATION: 04/02/2017 REFERRING PHYSICIAN: Dottie Tubbs MD REASON FOR CONSULT: To assist in the management of this 66-year-old male with a probable postobstructive pneumonia and empyema. HISTORY OF PRESENT ILLNESS: Mr. Hernandez is a very pleasant 66-year-old male whose previous medical history is notable for the followin. Coronary artery disease with history of myocardial infarction. 2. Myocardial infarction status post PCI x4. 3. Chronic obstructive pulmonary disease. 4. Tobacco use disorder. The patient has been smoking for 50 years, a pack per day. He continues to smoke. Regarding his present issues, the patient tells me he was in his usual state of good health until approximately 2 months ago. The patient tells me that he noticed his pants were starting to fall down and he had to tighten his belt. This was the first sign that something was wrong. Then, around mid January, he states he was out to dinner with a friend and developed a significant runny nose and felt like he had the flu. He tried to see his primary care doctor, but instead saw Dr. Bellamy, the partner of his primary care doctor. He states that Dr. Bellamy thought he had an infection, and gave him ciprofloxacin for 7 days. He states that he did not improve with ciprofloxacin, so he went back to Dr. Bellamy. He was then switched to levofloxacin for another 7 days without any improvement. He also developed a cough productive of some yellowish phlegm, but non-bloody. He also developed some pain in his right lower chest. He states that an x-ray was performed at the time that showed a "pneumonia" in his right base. Because the patient was not improving, the patient tells me that Dr. Bellamy wanted to draw blood for further evaluation of his ongoing symptoms. The patient states that by the time he got home after the blood draw, he received a call from Dr. Bellamy telling him to come to the Emergency Room given an elevated D-dimer. In the Emergency Room on 03/14, the patient had a normal oxygenation and no fever. A CT of the chest with contrast was performed that revealed a right lower lobe mass with consolidation and low-attenuation that "may represent necrotic malignancy versus phlegmon and evolving pulmonary abscess." He was also found to have a small to moderate layering right pleural effusion, and a 6 mm left lower lobe nodule. The patient was not given antibiotics and he was sent out with referral to Pulmonary. The patient was evaluated by Dr. Tiago Ray as an outpatient. Given that he was taking Plavix , the plan was for bronchoscopy with biopsy on 04/05. The patient tells me that this past , one of his neighbors brought him a slice of pie. He went to the door, leaned over to open it and developed exquisite pain in his right lower chest. He states that the pain was so bad that it was unlike anything he had experienced before, even with his heart attacks. His neighbor called 911 and [facility] and [facility]. A chest x-ray done in the Emergency Room revealed worsening pulmonary consolidation and atelectasis on the right with a large right pleural effusion. He was also found to have an elevated white blood cell count of 14.8 that jumped to 26.9 on hospital day 1. He was started on levofloxacin. A thoracentesis was performed with 1.2 L drained. This revealed a white blood cell count of 8,730, red blood cell count of 6,804, 98% neutrophils, LDH of 1, 276, and a glucose of less than 20 and a pH of 6.7. No chest tube was inserted. I am now asked to assist in his management. Speaking with the patient today, he tells me that over the past couple of weeks , his cough has improved, but the pain in his right lower chest has worsened. He continues to lose weight, but denies drenching night sweats. He is also anorectic and his energy level has been very diminished. The patient tells me "normally I go 100 miles an hour." He states that he has not been able to do this over the past several weeks. He denies headache, blurred vision, sore throat, new lumps or bumps, abdominal pain, burning with urination, although he does report that his urine has been malodorous. No focal weakness, confusion, or other. REVIEW OF SYSTEMS: Aside from what is listed above., 10 systems are reviewed and all are negative. PAST MEDICAL HISTORY: Previous medical history as outlined above. ALLERGIES: No known drug allergies. MEDICATIONS: Ertapenem 1 g IV daily, Lipitor 10 mg h.s., Zofran, oxycodone, and Ultram. SOCIAL HISTORY: The patient is originally from [place] and lived in [place] for 10 years. He has been here since 1981. He is and lives alone in a house. He has an adopted son who also lives in [place], and is very supportive. No pets. No recent travel within or outside the [facility]. No history of recent odontogenic infection. He states he drinks zero alcohol, as he does not like the way it makes him feel. He has never had a problem with alcohol. No illicit substances. He is a long-standing smoker, 1 pack per day for 50 years. FAMILY HISTORY: Notable for a father who of a heart attack at age 44 and a mother who of non-small cell carcinoma of the lung in her 70s. PHYSICAL EXAMINATION: VITAL SIGNS: T-current is 36.7, T-max 36.9, heart rate 64, blood pressure 90/54, 93% on 3 L. GENERAL: The patient appears older than stated age, no apparent distress. Very loquacious and pleasant. HEENT: Atraumatic, normocephalic. Pupils equal, round, reactive to light. Extraocular movements are intact. No conjunctival injection. No icterus or petechiae. Mild temporal wasting. Some ruddiness of the cheeks. No sinus tenderness or discharge from the nares. Mucous membranes moist. The patient's front teeth are capped. No obvious oral lesions noted. A slight tongue deviation to the right. NECK: Trachea is midline. No cervical or supraclavicular lymphadenopathy. CARDIOVASCULAR: S1, S2. No rubs, gallops, or murmurs. LUNGS: No increased respiratory effort. Absent breath sounds over the right base. Left lung is clear. ABDOMEN: Soft. No organomegaly or tenderness to palpation. No hepatosplenomegaly on exam. EXTREMITIES: No clubbing, cyanosis, or edema. 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 NEUROLOGIC: He is alert and oriented x3. Cranial nerves 2 through 12 are intact to exam. His sensory is intact to light touch throughout and motor is 5/5 upper and lower extremities. LABORATORY DATA: Microbiologic data, blood cultures x2 on 12/07 are pending. Pleural fluid Gram stain shows 4+ polys, no organisms, culture is pending. White blood cell count today of 25.6, hematocrit 40, platelet count of 357, 88% neutrophils. BUN and creatinine 24/0.8. AST 59, ALT 103, alkaline phosphatase 158. These are improved compared with admission. Procalcitonin of 0.9, albumin of 2.6. Acute hepatitis panel is negative with hepatitis A IgM negative , hepatitis B surface antigen negative, hepatitis B core IgM negative, and hepatitis C antibody negative. Pleural fluid cytology is pending. IMPRESSION: 66-year-old long-standing smoker who presents with several weeks of right-sided chest discomfort, weight loss, and cough. CT scan of the chest is concerning for malignancy with postobstructive pneumonia. Status post thoracentesis of large pleural effusion with findings consistent with exudate/empyema. Although malignant effusion can have a low pH and low glucose, suspect that this is a superimposed bacterial empyema with a more indolent pathogen, such as an anaerobe. Doubt pneumococcus or Staphylococcus aureus given the subacute nature of his illness. Other pathogens, such as mycobacteria and fungi, seem unlikely. PLAN: 1. The patient will be evaluated by General Surgery today. He will either need a chest tube or VATS moving forward. 2. Change Ertapenem to Unasyn 3 g IV q.6 hours. 3. Will talk to Pulmonary about bronchoscopy/biopsy of possible malignant lesion during this hospitalization, as lung cytology may be unrevealing. Thank you very much for consulting Infectious Diseases. We will continue to follow this patient with you. /[id number]/MODL MTDD
[2017-04-02] MEDS ORDERED: IOPAMIDOL (ISOVUE-300) 100 ML BTL ONE (14:28)
[2017-04-02] MEDS ORDERED: IPRATROPIUM/ALBUTEROL 3 ML DEYVIAL IH PRN (15:17)
--- NOTE | 2017-04-02 15:54 | PDINTPN ---
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 Low pH is concerning for high risk of developing an empyema, but culture negative to date. Cytology pending. Post-obstructive Pneumonia: Afebrile, WBC high but stable. On Unasyn. Smoking history: On nicotine patch, not having withdrawal. Dyspnea: Pneumonia and effusion likely major contributors, could also have a component of COPD. CAD: S/P stent May 2016. Plavix held for 3 days. Plan: Continue antibiotics. Await cytology. If negative, proceed with bronch. Would not bronch now while awaiting cytology, and only 3 days off Plavix. Likely will need definitive drainage of effusion, or at least re-sampling to assess for empyema. Will start DuoNeb PRN. 04/02/17 15:54 Subjective: Feels about the same, still with CP and dyspnea, but better than prior to thoracentesis. Objective: Vital Signs Temp Pulse Resp BP Pulse Ox 36.6 C 74 15 119/70 95 04/02/17 15:44 04/02/17 15:44 04/02/17 15:44 04/02/17 15:44 04/02/17 15:44 Microbiology 04/01/17 13:20 Gram Stain - Final Pleural Fluid - Aspirate Laboratory Results 04/02/17 04:56 04/02/17 04:56 04/01/17 04/02/17 04/03/17 05:59 05:59 05:59 Intake Total 1000 700 Output Total 275 2050 Balance 725 -1350 PT 15.2 SEC (12.0-15.0) H 03/31/17 13:00 INR 1.18 (0.83-1.16) H 03/31/17 13:00 CT CHest: Increased, loculated-appearing effusion on right compared to CT from 03/14. Increased size of RLL mass. Images reviewed by me. Physical Exam - Physical Exam General Appearance: alert, no apparent distress EENT: normal ENT inspection Neck: normal inspection Respiratory: decreased breath sounds (right base), No lungs clear Cardiac/Chest: regular rate, rhythm, No edema Abdomen: normal bowel sounds, non-tender Skin: normal color, warm/dry Extremities: normal inspection Neuro/Psych: alert, normal mood/affect, oriented x 3 ICD10 Worksheet Patient Problems: Problems Problem Status Onset Pleural effusion, right Acute
--- NOTE | 2017-04-02 16:05 | GCON ---
[f rep st] CONSULTATION PULMONARY/CRITICAL CARE CONSULTATION. DATE OF CONSULTATION: 04/01/2017 REFERRING PHYSICIAN: Gina Avila MD REASON FOR REFERRAL: Evaluation and management of pleural effusion, chest pain and dyspnea. HISTORY: The patient is a 66-year-old male who has had some chest pain for several months. He was s een in the emergency department on March 14 and had a CAT scan of his chest which was negative for pulmonary embolism, but showed a mass in the right lower lung. He was seen by Dr. Ray and had an outpatient bronchoscopy scheduled for April 05. His Plavix was held starting on March 30. However, he was admitted yesterday with a marked increase in his pleuritic chest pain. He also felt that he might have a fever. He has been having a productive cough for a few weeks that has not parti cularly changed. He just underwent a thoracentesis for 1250 mL of fluid and feels that his dyspnea a nd chest pain are improved, but he is still quite anxious about going home since the pain was so dea re and although it is better, it is not completely resolved. PAST MEDICAL HISTORY: 1. Coronary artery disease, status post stenting, most recently in May 2016. 2. COPD. MEDICATIONS: Aspirin, atorvastatin, clopidogrel. ALLERGIES: None. SOCIAL HISTORY: The patient has a 50 pack year history of smoking. He denies alcohol. He lives [facility]. FAMILY HISTORY: Unremarkable. REVIEW OF SYSTEMS: A 10-point review of systems has nothing to do with the history of present illnes s. PHYSICAL EXAMINATION: GENERAL: The patient is awake, alert, and in no acute distress, but does grim tami when taking a deep breath. His blood pressure is 120/70 with a heart rate of 68. He is afebrile . Oxygen saturations are 94% on 3.5 L. HEENT: Normocephalic and atraumatic. No icterus. NECK: N o adenopathy, trachea is midline. CHEST: Decreased breath sounds in the right base. CARDIAC: Regu lar rate and rhythm without murmur. ABDOMEN: Soft, nontender. Bowel sounds are present. EXTREMITI ES: No clubbing, cyanosis, or edema. NEURO: The patient is awake and alert. He has no gross motor or sensory deficits. LABORATORY: White blood count is 26.9 up from 14.8 yesterday. His potassium is 4.7. Electrolyte pa jv is otherwise unremarkable. An AST is 56 and an ALT is 119. His albumin is 2.7. Venous lactate is 1.8. Pleural fluid pH is 6.7 and the fluid was cloudy. Gram stain of the fluid shows no organism s. Culture is pending. His CT scan from March 14 shows a mass in the right lower lobe obstructing the medial basal segmen t of the right lower lobe and associated with a small effusion. ASSESSMENT: 1. Lung mass. This is likely malignancy given the patient's smoking history and the appearance on C T scan. Elective bronchoscopy was planned for April 05 and the patient has been holding Plavix. 2. Pleural effusion. This is likely a parapneumonic effusion and could represent an empyema given t he low pH. This would likely be due to a postobstructive pneumonia. The patient has been started on Unasyn. Re-sampling of the fluid is indicated given the low pH, given the risk of empyema. 3. Pleuritic chest pain. This improved, but not resolved after thoracentesis. RECOMMENDATIONS: 1. Continue empiric antibiotic therapy. 2. Follow cultures. 3. This fluid pressure probably should be re-sampled in another day or 2 to assess for empyema. CT scan imaging may be beneficial as well. /[id number]/MODL
--- NOTE | 2017-04-02 20:16 | SOAPPROG ---
SOAP Progress Note Assessment/Plan: 04/02/2017 Assessment: Effusion/empyema. Doubt that it can be drained with chest tube only Plan: Plan VATS in AM Objective: Vital Signs Temp Pulse Resp BP Pulse Ox 36.5 C 77 20 128/88 H 95 04/02/17 19:53 04/02/17 19:53 04/02/17 19:53 04/02/17 19:53 04/02/17 19:53 Microbiology 04/02/17 11:00 Mycobacterial Smear (ZAY) - Final Pleural Fluid - Aspirate 04/01/17 13:20 Gram Stain - Final Pleural Fluid - Aspirate Laboratory Results 04/02/17 04:56 04/02/17 04:56 04/01/17 04/02/17 04/03/17 05:59 05:59 05:59 Intake Total 1000 700 450 Output Total 275 2050 Balance 725 -1350 450 PT 15.2 SEC (12.0-15.0) H 03/31/17 13:00 INR 1.18 (0.83-1.16) H 03/31/17 13:00 ICD10 Worksheet Patient Problems: Problems Problem Status Onset Pleural effusion, right Acute
[2017-04-03] MEDS: ATORVASTATIN CALCIUM 10 MG TAB PO SCH (01:24)
[2017-04-03] MEDS: oxyCODONE IR 5 MG TAB PO PRN ×3 (05:08→20:39)
[2017-04-03] MEDS: AMPICILLIN/SULBACTAM 3 GM in NS 100 ML IV SCH ×4 (05:10→20:30)
[2017-04-03 05:12] LABS: % IMMATURE GRANULYOCYTES 1.2 % (0.0-1.1); ABSOLUTE IMMATURE GRANULOCYTES 0.26 10^3/uL (0.00-0.10); ADD DIFF? NO; ADD MORPH? NO; ADD SCAN? NO; ATYPICAL LYMPHOCYTE FLAG 0 (0-99); FRAGMENT RBC FLAG 0 (0-99); HEMATOCRIT 40.8 % (40.0-51.0); HEMOGLOBIN 13.9 g/dL (13.7-17.5); LEFT SHIFT FLG 10 (0-99); LIPEMIA HEMOLYSIS FLAG 90 (0-99); MEAN CELL HEMOGLOBIN 32.3 pg (27.9-34.1); MEAN CELL HEMOGLOBIN CONCENTR. 34.1 g/dL (32.4-36.7); MEAN CELL VOLUME 94.9 fL (81.5-99.8); MEAN PLATELET VOLUME 8.9 fL (8.7-11.7); PLATELET CLUMPS FLAG 0 (0-99); PLATELET COUNT 390 10^3/uL (150-400); RED CELL DISTRIBUTION WIDTH 13.2 % (11.5-15.2)
[2017-04-03 05:37] LABS: ALANINE AMINOTRANSFERASE 489 IU/L (21-72); ALBUMIN 2.7 g/dL (3.5-5.0); ALKALINE PHOSPHATASE 385 IU/L (38-126); ANION GAP 10 mEq/L (8-16); BILIRUBIN,TOTAL 0.7 mg/dL (0.1-1.4); CARBON DIOXIDE 29 mEq/l (22-31); CHLORIDE 99 mEq/L (97-110); CREATININE 0.8 mg/dL (0.7-1.3); GLOMERULAR FILTRATION RATE > 60; GLUCOSE 94 mg/dL (70-100); POTASSIUM 4.8 mEq/L (3.5-5.2); SODIUM 138 mEq/L (134-144); TOTAL PROTEIN 5.4 g/dL (6.3-8.2)
[2017-04-03 05:45] LABS: ASPARTATE AMINOTRANSFERASE 772 IU/L (17-59)
[2017-04-03] MEDS: ASPIRIN 81 MG CHEWABLE TAB PO SCH (07:45)
[2017-04-03] MEDS: NICOTINE 14 MG/24 HR PATCH TD SCH (07:47)
[2017-04-03] MEDS ORDERED: MIDAZOLAM 2 MG/2 ML VIAL IVP ONE (08:23)
[2017-04-03] MEDS ORDERED: MIDAZOLAM 2 MG/2 ML VIAL ONE (08:24)
--- NOTE | 2017-04-03 08:28 | PDANEPAE ---
ANE History of Present Illness R loculated pleural effusion now s/f VATS ANE Past Medical History - Cardiovascular History Hx Hypertension: No Hx Arrhythmias: No Hx Chest Pain: Yes Hx Coronary Artery / Peripheral Vascular Disease: Yes Hx CHF / Valvular Disease: No Hx Palpitations: No Cardiovascular History Comment: AK X 2 05/[address] [facility]. STENTS PLACED. - Pulmonary History Hx COPD: No Hx Asthma/Reactive Airway Disease: No Hx Recent Upper Respiratory Infection: No Hx Oxygen in Use at Home: No Hx Sleep Apnea: No Sleep Apnea Screening Result - Last Documented: Positive Pulmonary History Comment: 03/14/17 CT OF CHEST SUGGESTIVE OF RLL MASS - Neurologic History Hx Cerebrovascular Accident: No Hx Seizures: No Hx Dementia: No - Endocrine History Hx Diabetes: No - Renal History Hx Renal Disorders: No - Liver History Hx Hepatic Disorders: No - Neurological & Psychiatric Hx Hx Neurological and Psychiatric Disorders: No - Cancer History Hx Cancer: No - Congenital Disorder History Hx Congenital Disorders: No - GI History Hx Gastrointestinal Disorders: No - Chronic Pain History Chronic Pain: Yes (RT SIDED CHEST) - Surgical History Prior Surgeries: REMVL SKIN CA ANE Review of Systems Review of Systems: - Exercise capacity METS (RN): 2 METS ANE Patient History - Allergies Allergies/Adverse Reactions: No Known Allergies Allergy (Verified 03/31/17 13:12) - Home Medications Home medications: home medication list seen and reviewed Home Medications: Clopidogrel Bisulfate [Plavix (*)] 75 mg PO DAILY 03/14/17 [Last Taken 03/30/17] Aspirin [Aspirin 81mg (*)] 81 mg PO DAILY 03/31/17 [Last Taken 03/30/17] Atorvastatin Calcium [Lipitor 10 mg (*)] 10 mg PO HS 03/31/17 [Last Taken ] - NPO status NPO Status: no food or drink >8 hours NPO Since - Liquids (Date): 04/03/17 NPO Since - Liquids (Time): 00:00 NPO Since - Solids (Date): 04/03/17 NPO Since - Solids (Time): 00:00 - Anes Hx Anes Hx: no prior problems - Smoking Hx Smoking Status: Heavy smoker - Alcohol Use Alcohol Use: Sober - Family Anes Hx Family Anes Hx: none Family Hx Anesthesia Complications: NEG ANE Labs/Vital Signs - Labs Result Diagrams: 04/03/17 04:52 04/03/17 04:52 - Vital Signs Blood Pressure: 126/68 Heart Rate: 69 Respiratory Rate: 18 O2 Sat (%): 96 Height: 182.88 cm Weight: 79.379 kg ANE Physical Exam - Airway Mallampati Score: Class 1 Mouth exam: normal dental/mouth exam - Pulmonary Pulmonary: other (severely decrease BS on the right) ANE Anesthesia Plan Anesthesia Plan: general endotracheal anesthesia Lines/Monitors: arterial line (+/- a-line) Specialized Airway: double lumen tube
[2017-04-03] MEDS ORDERED: PROPOFOL/EMULSION 500 MG/50 ML BOTTLE IV ONE (08:35)
[2017-04-03] MEDS ORDERED: REMIFENTANIL HCL 1 MG VIAL ONE (08:35)
[2017-04-03] MEDS ORDERED: DEXAMETHASONE 4 MG/ML VIAL ONE (08:36)
[2017-04-03] MEDS ORDERED: LIDOCAINE 2% 100 MG/5 ML SYR ONE (08:36)
[2017-04-03] MEDS ORDERED: ONDANSETRON 4 MG/2 ML VIAL ONE (08:36)
[2017-04-03] MEDS ORDERED: LIDOCAINE HCL 160 MG/4 ML LTA KIT TP ONE (08:36)
[2017-04-03] MEDS ORDERED: PHENYLEPHRINE HCL 100 MCG/ML SYR ONE (08:43)
[2017-04-03] MEDS ORDERED: LIDOCAINE 2% JELLY 5 ML TUBE ONE (08:43)
[2017-04-03] MEDS ORDERED: PHENYLEPHRINE 10 MG/ML SDV ONE (09:10)
[2017-04-03] MEDS ORDERED: ROCURONIUM 50 MG/5 ML VIAL ONE (09:45)
--- NOTE | 2017-04-03 10:32 | HOSPPROG ---
Hospitalist Progress Note Assessment/Plan: RLL consolidation / ?mass / post-obstructive PNA - Consider necrotic malignancy versus pulmonary abscess. BCx's NGTD. Cytology on pleural fluid pending. This may yield a diagnosis, but could still be days from results and we are currently in a plavix-free window regarding bronch timing. 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 Abrupt rise, will repeat. Hep panel neg. Unasyn or Ertapenem not common offenders for LFT increase, but possible -check RUQ u/s to r/o obstructive process with increased alk phos though bili normal -further w/u pending u/s results Hypoxemic respiratory failure - Secondary to above. 3 LPM CAD with stenting in 05/2016 - he had a NIYA placed in LAD in 05/2016. -Plavix held for planned procedures, last dose 03/30 -will d/w Dr. Tinoco' team, ok to be off plavix x5 days, need to resume 04/05 -cont ASA COPD - No wheezing, prn nebs Tobacco abuse - encourage cessation DNR DVT PPLX - Lovenox Dispo - cont inpt Subjective: Pt feels he can take a better deep breath after VATS, but quite sore and doing a lot of coughing. No fevers/chills. No abdominal pain, N/V/D. Objective: Vital Signs Temp Pulse Resp BP Pulse Ox 36.9 C 69 18 126/68 H 96 04/03/17 08:08 04/03/17 08:28 04/03/17 08:28 04/03/17 08:28 04/03/17 08:28 Microbiology 04/02/17 11:00 Mycobacterial Smear (ZAY) - Final Pleural Fluid - Aspirate 04/01/17 13:20 Gram Stain - Final Pleural Fluid - Aspirate Laboratory Results 04/03/17 04:52 04/03/17 04:52 04/02/17 04/03/17 04/04/17 05:59 05:59 05:59 Intake Total 700 550 Output Total 2049 Balance -1350 550 PT 15.2 SEC (12.0-15.0) H 03/31/17 13:00 INR 1.18 (0.83-1.16) H 03/31/17 13:00 - Physical Exam Constitutional: chronically ill appearing Eyes: PERRL Ears, Nose, Mouth, Throat: moist mucous membranes Cardiovascular: regular rate and rhythym Respiratory: no respiratory distress, reduced air movement Gastrointestinal: normoactive bowel sounds, soft, non-tender abdomen Skin: warm Musculoskeletal: full muscle strength Neurologic: AAOx3 Psychiatric: interacting appropriately ICD10 Worksheet Patient Problems: Problems Problem Status Onset Pleural effusion, right Acute
[2017-04-03] MEDS ORDERED: SUGAMMADEX SODIUM 200 MG/2 ML VIAL IVP ONE (10:42)
[2017-04-03] MEDS ORDERED: fentaNYL 100 MCG/2 ML INJ ONE (10:45)
--- NOTE | 2017-04-03 11:00 | POSTOPPROG ---
Post Op Note Date of Operation: 04/03/17 Surgeon: José Graham Anesthesia: GET(General Endotracheal), Other (Specify) (Double lumen tube) Pre-op Diagnosis: Loculated right pleural effusion/empyema Post-op Diagnosis: Loculated right pleural effusion/resolved empyema(?) Indication: Loculated right pleural effusion/empyema Procedure: VATS with decortication Findings: Loculated right pleural effusion/resolved empyema(?) Inf/Abcess present in the surg proc area at time of surgery?: No EBL: 250cc Total fluids administered: 600cc Complications: none Drains: Other (Staight and angled chest tube) Specimen(s): Debridement tissue sent for permanent analysis
[2017-04-03] MEDS ORDERED: METOCLOPRAMIDE 10 MG/2 ML VIAL IVP PRN (11:05)
[2017-04-03] MEDS ORDERED: LR 500 ML IV PRN (11:05)
[2017-04-03] MEDS ORDERED: NALOXONE HCL 0.4 MG/ML INJ IVP PRN (11:05)
[2017-04-03] MEDS ORDERED: DEXAMETHASONE 4 MG/ML VIAL IVP PRN (11:05)
[2017-04-03] MEDS ORDERED: MEPERIDINE 25 MG/ML SYR IVP PRN (11:05)
[2017-04-03] MEDS ORDERED: ACETAMINOPHEN 500 MG TAB PO PRN (11:05)
[2017-04-03] MEDS ORDERED: fentaNYL 100 MCG/2 ML INJ IVP PRN (11:05)
[2017-04-03] MEDS ORDERED: HYDROCODONE/APAP 5/325 TAB PO PRN (11:05)
[2017-04-03] MEDS ORDERED: LABETALOL HCL 5 MG/ML 20 ML MDV IVP PRN (11:05)
[2017-04-03] MEDS ORDERED: PHENYLEPHRINE HCL 100 MCG/ML SYR IVP PRN (11:05)
[2017-04-03] MEDS ORDERED: PROMETHAZINE HCL 25 MG/ML INJ IVP PRN (11:05)
[2017-04-03] MEDS ORDERED: ALBUTEROL 3 ML DEYVIAL IH PRN (11:05)
[2017-04-03] MEDS ORDERED: OXYCODONE/APAP 5/325 TAB PO PRN (11:05)
[2017-04-03] MEDS ORDERED: ONDANSETRON 4 MG/2 ML VIAL IVP PRN (11:05)
--- NOTE | 2017-04-03 11:06 | POSTANESTH ---
Post Anesthetic Evaluation Cardiovascular Status: Normal, Stable, Similar to Pre-Op Cond Respiratory Status: Similar to Pre-op Cond., Tx Decrease in SpO2 Level of Consciousness/Mental Status: Can Participate in Eval, Mildly Sleepy, Arousable Pain Control: Adequate, Prn Tx Ordered Nausea/Vomiting Control: Adequate, Prn Tx Ordered Complications Possibly Related to Anesthesia: None Noted
--- NOTE | 2017-04-03 11:32 | GOP ---
[f rep st] OPERATIVE REPORT DATE OF OPERATION: SURGEON: José Graham MD ANESTHESIA: General endotracheal anesthesia with dual-lumen tube. ANESTHESIOLOGIST: Kun Juarez MD. PREOPERATIVE DIAGNOSIS: Loculated right pleural effusion/empyema. POSTOPERATIVE DIAGNOSIS: Loculated right pleural effusion/resolved empyema (?). PROCEDURE PERFORMED: Decortication with VATS. FINDINGS: Loculated right pleural effusion/resolved empyema (?). ESTIMATED BLOOD LOSS: 250 mL. INDICATIONS: Loculated right pleural effusions/empyema. DESCRIPTION OF PROCEDURE: The patient is placed on the operating room table in a supine position. After induction of adequate general endotracheal anesthesia with a dual-lumen tube and position check with bronchoscopy, the patient was placed in the left lateral decubitus position. There was a left axillary roll placed. His right arm was on upper arm board. His left hip is flexed. His left knee is flexed. Care was taken to pad the peroneal nerve area. The right leg is straight and padded with 2 pillows. A beanbag was used to secure his chest in the right position. The bed is slightly flexed. The beanbag was inflated. 3-inch silk tape was used to cross the hip as an additional precaution. Chest is now carefully prepped and draped. A surgical time-out was carried out and agreed to by all members of the operative team. A point was chosen for the larger port. This is in the posterior axillary line at the superior surface of approximately the 6th rib. The skin is incised below this site. Incision is deepened with Bovie electrocautery. Using a hemostat, I am carefully able to track up over the superior surface of the rib. The chest was entered. A clear fluid is obtained for C&S. The 15 mm flexible port is placed. Inspection with a 7 mm 0 degree thoracoscope was carried out. Extensive loculations are identified. A second port (7mm) was placed over the superior surface of approximately the 8th rib in the anterior axillary line. Using both ports, I am able to carefully develop a space, debride the loculated adhesions and free up the lung completely. A large amount of debris is removed with a combination of techniques. The chest was carefully irrigated. Hemostasis appears to be appropriate. A 32-Maltese angled chest tube was placed through the 15 mm port and directed down toward the diaphragm. A 28-Maltese chest tube was placed through the 7 mm port and directed to the apex. Both chest tubes were sutured in place with 2-0 silk sutures. Sterile dressings were applied. The patient is transferred to recovery in stable and satisfactory condition. The chest tubes were connected to individual Pleur-evacs. The debrided tissue was sent for final pathologic analysis. INFECTION PRESENT: No. FLUIDS ADMINISTERED: 600 mL. COMPLICATIONS: None. CHEST TUBES,: 2 chest tubes were placed. The anterior chest tube is a 28- Maltese that goes to the apex. The lateral chest tube is a 32-Maltese angled chest tube, which goes to the posterior base. /[id number]/MODL MTDD
[2017-04-03] MEDS ORDERED: KETOROLAC 30 MG/1 ML SDV ONE (11:35)
[2017-04-03] MEDS ORDERED: HYDROmorphONE/DILAUDID 1 MG/ML INJ ONE (11:35)
[2017-04-03] MEDS: KETOROLAC 30 MG/1 ML SDV IVP PRN ×2 (11:39→20:39)
[2017-04-03] MEDS ORDERED: LR 1,000 ML IV SCH (12:00)
[2017-04-03] MEDS: HYDROmorphone HCL/NS/PF 0.4 MG/2 ML SYR IVP PRN (13:07)
[2017-04-03] MEDS ORDERED: ACETAMINOPHEN 500 MG TAB PO SCH (14:00)
--- NOTE | 2017-04-03 14:54 | PCMIDPN ---
Assessment/Plan: 1. Probable right-sided postobstructive pneumonia with concomitant empyema, now status post VATS: Dr. Graham's assistance greatly appreciated! Clinical suspicion for underlying carcinoma still fairly high in the setting of longstanding tobacco use disorder. Possible bronchoscopy in the next day or 2 for evaluation of this. Continue Unasyn as is. Multiple cultures are pending. 2. Abnormal liver function tests: Extremely precipitous in nature. Repeat liver function tests have been ordered. Abdominal ultrasound has been ordered. Acute hepatitis panel was negative just a few days ago. Await repeat values before embarking on additional tests. Subjective: In good spirits after VATS. No nausea or vomiting. Feels that he can take a deep breath again. No diarrhea. No confusion. Objective: Unasyn 3 g IV q.6 hours day 2 (antibiotics day 3) Afebrile Vital Signs Temp Pulse Resp BP Pulse Ox 36.4 C 65 16 109/59 L 96 04/03/17 12:32 04/03/17 12:32 04/03/17 12:32 04/03/17 12:32 04/03/17 12:32 Microbiology 04/01/17 13:20 Gram Stain - Final Pleural Fluid - Aspirate 04/02/17 11:00 Mycobacterial Smear (ZAY) - Final Pleural Fluid - Aspirate Laboratory Results 04/03/17 04:52 04/03/17 04:52 04/02/17 04/03/17 04/04/17 05:59 05:59 05:59 Intake Total 700 550 700 Output Total 2050 524 Balance -1350 550 176 Multiple cultures are pending - Physical Exam General Appearance: no apparent distress, cachetic EENT: pharynx normal, No scleral icterus, No thrush Respiratory: other (2 chest tubes on the right, left lung clear) Cardiac/Chest: regular rate, rhythm Abdomen: non-tender, soft, No ascites, No peritoneal signs Skin: other (Hemosiderosis forearms, 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
--- NOTE | 2017-04-03 14:55 | PDINTPN ---
Shift Supervisor Progress Note Assessment/Plan: Assessment: RLL Mass: Suspect bronchogenic lung cancer with post-obstructive pneumonia Pleural effusion: Parapneumonic/malignant. S/P VATS. Post-obstructive Pneumonia: Afebrile, WBC high but stable. On Unasyn. Smoking history: On nicotine patch, not having withdrawal. Dyspnea: Pneumonia and effusion likely major contributors, could also have a component of COPD. CAD: S/P stent May 2016. Plavix held for 3 days. Plan: Continue antibiotics. Await cytology from thoracentesis Tuesday, pathology from VATS today. Dr. Ray will see tomorrow and decide on bronch. Will start DuoNeb PRN. 04/03/17 14:52 Subjective: Feels better after VATS, able to take deeper breaths. Pain controlled. Objective: Vital Signs Temp Pulse Resp BP Pulse Ox 36.4 C 65 16 109/59 L 96 04/03/17 12:32 04/03/17 12:32 04/03/17 12:32 04/03/17 12:32 04/03/17 12:32 Microbiology 04/01/17 13:20 Gram Stain - Final Pleural Fluid - Aspirate 04/02/17 11:00 Mycobacterial Smear (ZAY) - Final Pleural Fluid - Aspirate Laboratory Results 04/03/17 04:52 04/03/17 04:52 04/02/17 04/03/17 04/04/17 05:59 05:59 05:59 Intake Total 700 550 700 Output Total 2050 524 Balance -1350 550 176 PT 15.2 SEC (12.0-15.0) H 03/31/17 13:00 INR 1.18 (0.83-1.16) H 03/31/17 13:00 Laboratory Tests 04/02/17 04/03/17 04:56 04:52 Total Bilirubin 0.7 D AST 772 H ALT 489 H Alkaline Phosphatase 385 H Procalcitonin 0.92 H CXR: Improved right base opacity. Images reviewed by me. Physical Exam - Physical Exam General Appearance: alert, no apparent distress EENT: normal ENT inspection Neck: normal inspection Respiratory: crackles (right base), other (improved breath sounds right base) Cardiac/Chest: regular rate, rhythm, No edema Abdomen: normal bowel sounds, non-tender Skin: normal color, warm/dry Extremities: normal inspection Neuro/Psych: alert, normal mood/affect, oriented x 3 ICD10 Worksheet Patient Problems: Problems Problem Status Onset Pleural effusion, right Acute
[2017-04-03 15:29] LABS: ALBUMIN 2.1 g/dL (3.5-5.0); BILIRUBIN,TOTAL 0.5 mg/dL (0.1-1.4); BILIRUBIN-CONJUGATED 0.5 mg/dL (0.0-0.5); TOTAL PROTEIN 4.1 g/dL (6.3-8.2)
[2017-04-04] MEDS: AMPICILLIN/SULBACTAM 3 GM in NS 100 ML IV SCH ×4 (01:30→20:57)
[2017-04-04] MEDS: oxyCODONE IR 5 MG TAB PO PRN ×3 (01:35→20:57)
[2017-04-04 06:16] LABS: % IMMATURE GRANULYOCYTES 1.3 % (0.0-1.1); ABSOLUTE IMMATURE GRANULOCYTES 0.25 10^3/uL (0.00-0.10); ADD DIFF? NO; ADD MORPH? NO; ADD SCAN? NO; ATYPICAL LYMPHOCYTE FLAG 0 (0-99); FRAGMENT RBC FLAG 0 (0-99); HEMATOCRIT 32.6 % (40.0-51.0); HEMOGLOBIN 11.1 g/dL (13.7-17.5); LEFT SHIFT FLG 0 (0-99); LIPEMIA HEMOLYSIS FLAG 90 (0-99); MEAN CELL HEMOGLOBIN 32.5 pg (27.9-34.1); MEAN CELL VOLUME 95.3 fL (81.5-99.8); MEAN PLATELET VOLUME 8.8 fL (8.7-11.7); PLATELET CLUMPS FLAG 30 (0-99); PLATELET COUNT 331 10^3/uL (150-400); RED BLOOD CELL COUNT 3.42 10^6/uL (4.40-6.38); RED CELL DISTRIBUTION WIDTH 13.3 % (11.5-15.2)
[2017-04-04 06:49] LABS: ALANINE AMINOTRANSFERASE 232 IU/L (21-72); ALBUMIN 2.2 g/dL (3.5-5.0); ALKALINE PHOSPHATASE 227 IU/L (38-126); ANION GAP 8 mEq/L (8-16); ASPARTATE AMINOTRANSFERASE 95 IU/L (17-59); BILIRUBIN,TOTAL 0.3 mg/dL (0.1-1.4); CALCIUM 8.3 mg/dL (8.5-10.4); CARBON DIOXIDE 27 mEq/l (22-31); CHLORIDE 104 mEq/L (97-110); CREATININE 0.7 mg/dL (0.7-1.3); GLOMERULAR FILTRATION RATE > 60; GLUCOSE 109 mg/dL (70-100); POTASSIUM 5.1 mEq/L (3.5-5.2); SODIUM 139 mEq/L (134-144); TOTAL PROTEIN 4.2 g/dL (6.3-8.2)
--- NOTE | 2017-04-04 08:30 | HOSPPROG ---
Hospitalist Progress Note Assessment/Plan: RLL consolidation / ?mass / post-obstructive PNA - Consider necrotic malignancy versus pulmonary abscess. BCx's NGTD. 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 No malignant cells seen on pathology review of pleural fluid. Cytology pending. -VATS yesterday, appreciate surgical assistance -2 chest tubes in position on CXR this am, management per surg -consider bronch today while pt is off plavix, f/u pulm recs regarding this. Will keep NPO for now. Elevated LFT's - No RUQ tenderness. Hep panel neg. Abrupt rise, now trending down s/p VATS. Query if this was related to empyema/right lung consolidation. Unasyn or Ertapenem not common offenders. -RUQ u/s neg for obstructive process -cont to trend Hypoxemic respiratory failure - Secondary to above. 3 LPM CAD with stenting in 05/2016 - he had a NIYA placed in LAD in 05/2016. -Plavix held for planned procedures, last dose 03/30 -discussed with Dr. Tinoco' team, ok to be off plavix x5 days (today is day 5 ), need to resume 04/05 -cont ASA COPD - No wheezing, prn nebs Tobacco abuse - encourage cessation DNR DVT PPLX - Lovenox held yesterday for VATS. Resume today, hold tomorrow for possible bronch. Dispo - cont inpt Subjective: Pt feels better today. Able to take deep breath. Coughing less. No fevers. Up in chair. Appetite improved. Objective: Vital Signs Temp Pulse Resp BP Pulse Ox 36.6 C 60 18 93/50 L 96 04/04/17 07:34 04/04/17 07:34 04/04/17 07:34 04/04/17 07:34 04/04/17 07:34 Microbiology 04/03/17 09:18 Gram Stain - Final Pleural Fluid - Swab 04/03/17 09:18 Gram Stain - Final Pleural Fluid - Swab 04/01/17 13:20 Gram Stain - Final Pleural Fluid - Aspirate Laboratory Results 04/04/17 06:10 04/04/17 06:10 04/03/17 04/04/1717 05:59 05:59 05:59 Intake Total 550 1120 Output Total 1189 Balance 550 -69 PT 15.2 SEC (12.0-15.0) H 03/31/17 13:00 INR 1.18 (0.83-1.16) H 03/31/17 13:00 - Physical Exam Constitutional: no apparent distress Eyes: PERRL Ears, Nose, Mouth, Throat: moist mucous membranes Cardiovascular: regular rate and rhythym Respiratory: no respiratory distress, other (improved air movement of RLL, still some faint crackles) Gastrointestinal: normoactive bowel sounds Skin: warm Musculoskeletal: full muscle strength Neurologic: AAOx3 Psychiatric: interacting appropriately ICD10 Worksheet Patient Problems: Problems Problem Status Onset Pleural effusion, right Acute
[2017-04-04] MEDS: NICOTINE 14 MG/24 HR PATCH TD SCH (09:05)
[2017-04-04] MEDS: KETOROLAC 30 MG/1 ML SDV IVP PRN ×2 (09:08→20:58)
--- NOTE | 2017-04-04 09:09 | SOAPPROG ---
SOAP Progress Note Assessment/Plan: 04/02/2017 Assessment: Effusion/empyema. Doubt that it can be drained with chest tube only Plan: Plan VATS in AM 04/04/17 09:03 POD#1 Assessment: Still working on lung re-expansion - IS to 1200 only. Chest tubes - no air leak. #1 324cc, #2 615cc ( would not remove until < 75cc/shift total) Still awaiting cytology from thoracentesis and path from VATS. Has E to A changes at medial right base (not unexpected) Chest tube site looks good. Plan: Encourage patient to request pain meds so he can work effectively on pulmonary toilet. Subjective: Pain is occasionally down to 6 Objective: Vital Signs Temp Pulse Resp BP Pulse Ox 36.6 C 60 18 93/50 L 96 04/04/17 07:34 04/04/17 07:34 04/04/17 07:34 04/04/17 07:34 04/04/17 07:34 Microbiology 04/03/17 09:18 Gram Stain - Final Pleural Fluid - Swab 04/03/17 09:18 Gram Stain - Final Pleural Fluid - Swab 04/01/17 13:20 Gram Stain - Final Pleural Fluid - Aspirate Laboratory Results 04/04/17 06:10 04/04/17 06:10 04/03/17 04/04/17 04/05/17 05:59 05:59 05:59 Intake Total 550 1120 Output Total 1189 Balance 550 -69 PT 15.2 SEC (12.0-15.0) H 03/31/17 13:00 INR 1.18 (0.83-1.16) H 03/31/17 13:00 - Time Spent With Patient Time Spent With Patient: 25 Physical Exam - Physical Exam General Appearance: WD/WN, alert, mild distress Respiratory: lungs clear (E to A changes at right medial base), normal breath sounds, other (No air leak, Chest tube drainage is thin serosanguinous.) ICD10 Worksheet Patient Problems: Problems Problem Status Onset Pleural effusion, right Acute
--- NOTE | 2017-04-04 10:45 | PCMIDPN ---
Assessment/Plan: Assessment/Plan: * Loculated effusion/empyema status post VATS: Operative notes reviewed with question of resolving empyema based on operative findings. Cultures remain no growth to date. Concerns about underlying malignancy also present with possible bronchoscopy to further evaluate in patient with longstanding smoking history. 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 Continue Unasyn pending additional culture data. 04/04/17 10:41 Subjective: Patient with some chest pain post VATS. Operative findings noted. Objective: Vital Signs Temp Pulse Resp BP Pulse Ox 36.6 C 60 18 93/50 L 96 04/04/17 07:34 04/04/17 07:34 04/04/17 07:34 04/04/17 07:34 04/04/17 07:34 Microbiology 04/03/17 09:18 Gram Stain - Final Pleural Fluid - Swab 04/03/17 09:18 Gram Stain - Final Pleural Fluid - Swab 04/01/17 13:20 Gram Stain - Final Pleural Fluid - Aspirate Laboratory Results 04/04/17 06:10 04/04/17 06:10 04/03/17 04/04/17 04/05/17 05:59 05:59 05:59 Intake Total 550 1120 Output Total 1189 Balance 550 -69 Unasyn # 3 Antibiotics # 4 Blood cultures x2 no growth Pleural fluid cultures no growth Operative pleural cultures Gram stain negative with cultures pending and no growth to date CT scan from both February and March reviewed by me today. - Physical Exam General Appearance: alert, no apparent distress EENT: No thrush, No conjunctival petechiae Respiratory: other (Decreased breath sounds right base) Cardiac/Chest: regular rate, rhythm Abdomen: non-tender, No distended ICD10 Worksheet Patient Problems: Problems Problem Status Onset Pleural effusion, right Acute
[2017-04-04] MEDS: ASPIRIN 81 MG CHEWABLE TAB PO SCH (14:00)
--- NOTE | 2017-04-04 14:51 | PDINTPN ---
Geographic Information Systems Manager Progress Note Assessment/Plan: Assessment: RLL Mass: Possible bronchogenic lung cancer verses dense pneumonia Pleural effusion: Parapneumonic versus malignant. S/P VATS. Pathology pending Post-obstructive Pneumonia: Afebrile, WBC high but stable. On Unasyn. Smoking history: On nicotine patch, not having withdrawal. Dyspnea: Pneumonia and effusion likely major contributors, clearly has COPD/ emphysema.. CAD: S/P stent May 2016. Plavix held. Plan: Continue antibiotics and bronchopulmonary therapies. Await cytology from thoracentesis Tuesday, pathology from VATS yesterday. Discussed with pathology. Preliminary report will not be back until tomorrow at the earliest. I will await these results before deciding on bronchoscopy. Possible bronch tomorrow in the afternoon. 30 min of critical care time spent directly with the patient. Discussed with the patient and his , nursing, and the ICU multi disciplinary team. Subjective: Doing well. No specific complaints. Up in chair. Chest tubes in place. Denies shortness of breath or significant pain. Objective: Vital Signs Temp Pulse Resp BP Pulse Ox 36.5 C 61 23 H 126/62 H 98 04/04/17 11:42 04/04/17 11:42 04/04/17 11:42 04/04/17 11:42 04/04/17 11:42 Microbiology 04/01/17 13:20 Gram Stain - Final Pleural Fluid - Aspirate 04/02/17 11:00 Mycobacterial Smear (ZAY) - Final Pleural Fluid - Aspirate 04/03/17 09:18 Gram Stain - Final Pleural Fluid - Swab 04/03/17 09:18 Gram Stain - Final Pleural Fluid - Swab Laboratory Results 04/04/17 06:10 04/04/17 06:10 04/03/17 04/04/17 04/05/17 05:59 05:59 05:59 Intake Total 550 1120 Output Total 1189 100 Balance 550 -69 -100 PT 15.2 SEC (12.0-15.0) H 03/31/17 13:00 INR 1.18 (0.83-1.16) H 03/31/17 13:00 Laboratory Tests 04/04/17 06:10 Calcium 8.3 L Total Bilirubin 0.3 AST 95 H ALT 232 H Alkaline Phosphatase 227 H Albumin 2.2 L CXR: Right chest tubes in place. Atelectasis present. Physical Exam - Physical Exam General Appearance: alert, no apparent distress EENT: other (Nasal cannula at 1.5 L.) Neck: normal inspection (No JVD obvious) Respiratory: decreased breath sounds (Bilaterally, right more so than left), rales (Right base), prolonged expiration, No wheezing Cardiac/Chest: bradycardia (Sinus) Abdomen: normal bowel sounds, non-tender, soft Male Genitalia: other (No Jimenez catheter) Skin: normal color, warm/dry Extremities: No pedal edema Neuro/Psych: no motor/sensory deficits, No cognition abnormalities ICD10 Worksheet Patient Problems: Problems Problem Status Onset Pleural effusion, right Acute
[2017-04-04] MEDS: ENOXAPARIN 40 MG/0.4 ML SYR SC SCH (15:17)
--- NOTE | 2017-04-04 17:16 | ASMTCMCOM ---
CM Note CM Note Notes: Patient had a VATS procedure, possible lung CA vs PNA path pending. Possible Bronc for more info. Therapies not involved. CM to follow for discharge needs. Date Signed: 04/04/2017 05:16 PM Electronically Signed By:Suzette Salas LCSW
[2017-04-04] MEDS: HYDROmorphone HCL/NS/PF 0.4 MG/2 ML SYR IVP PRN (20:57)
[2017-04-05] MEDS: KETOROLAC 30 MG/1 ML SDV IVP PRN ×3 (00:38→22:30)
[2017-04-05] MEDS: oxyCODONE IR 5 MG TAB PO PRN ×4 (02:00→16:12)
[2017-04-05] MEDS: AMPICILLIN/SULBACTAM 3 GM in NS 100 ML IV SCH ×2 (02:00→07:54)
[2017-04-05 05:44] LABS: ALANINE AMINOTRANSFERASE 211 IU/L (21-72); ALBUMIN 1.9 g/dL (3.5-5.0); ALKALINE PHOSPHATASE 203 IU/L (38-126); ANION GAP 8 mEq/L (8-16); ASPARTATE AMINOTRANSFERASE 168 IU/L (17-59); BILIRUBIN,TOTAL 0.2 mg/dL (0.1-1.4); CALCIUM 7.3 mg/dL (8.5-10.4); CARBON DIOXIDE 25 mEq/l (22-31); CHLORIDE 108 mEq/L (97-110); CREATININE 0.7 mg/dL (0.7-1.3); GLOMERULAR FILTRATION RATE > 60; GLUCOSE 84 mg/dL (70-100); POTASSIUM 4.3 mEq/L (3.5-5.2); SODIUM 141 mEq/L (134-144); TOTAL PROTEIN 3.7 g/dL (6.3-8.2)
[2017-04-05 05:56] LABS: % IMMATURE GRANULYOCYTES 0.9 % (0.0-1.1); ABSOLUTE IMMATURE GRANULOCYTES 0.12 10^3/uL (0.00-0.10); ADD DIFF? NO; ADD MORPH? NO; ADD SCAN? NO; ATYPICAL LYMPHOCYTE FLAG 0 (0-99); FRAGMENT RBC FLAG 0 (0-99); HEMATOCRIT 30.2 % (40.0-51.0); HEMOGLOBIN 10.1 g/dL (13.7-17.5); LEFT SHIFT FLG 10 (0-99); LIPEMIA HEMOLYSIS FLAG 80 (0-99); MEAN CELL HEMOGLOBIN 32.1 pg (27.9-34.1); MEAN CELL HEMOGLOBIN CONCENTR. 33.4 g/dL (32.4-36.7); MEAN CELL VOLUME 95.9 fL (81.5-99.8); MEAN PLATELET VOLUME 9.3 fL (8.7-11.7); PLATELET CLUMPS FLAG 0 (0-99); PLATELET COUNT 326 10^3/uL (150-400); RED BLOOD CELL COUNT 3.15 10^6/uL (4.40-6.38); RED CELL DISTRIBUTION WIDTH 13.3 % (11.5-15.2)
[2017-04-05] MEDS: ASPIRIN 81 MG CHEWABLE TAB PO SCH (07:55)
[2017-04-05] MEDS: NICOTINE 14 MG/24 HR PATCH TD SCH (07:55)
[2017-04-05] MEDS: ENOXAPARIN 40 MG/0.4 ML SYR SC SCH (08:00)
--- NOTE | 2017-04-05 08:54 | HOSPPROG ---
Hospitalist Progress Note Assessment/Plan: RLL consolidation / ?mass / post-obstructive PNA - Consider necrotic malignancy versus pulmonary abscess. BCx's NGTD. -changed from unasyn to Ceftriaxone per ID -bronch today for biopsy Pleural effusion / Empyema - No malignant cells seen on pathology review of pleural fluid. Cytology pending. -VATS 04/03, appreciate surgical assistance -2 chest tubes, management per surg Elevated LFT's - No RUQ tenderness. Hep panel neg. Abrupt rise, now trending down s/p VATS. Query if this was related to empyema/right lung consolidation. Unasyn or Ertapenem not common offenders. -RUQ u/s neg for obstructive process -cont to trend -holding statin Hypoxemic respiratory failure - Secondary to above. 3 LPM CAD with stenting in 05/2016 - he had a NIYA placed in LAD in 05/2016. -Plavix held for planned procedures, resume in am -cont ASA COPD - No wheezing, prn nebs Tobacco abuse - encourage cessation DNR DVT PPLX - Lovenox held yesterday for VATS. Hold Lovenox today for possible bronch, resume tomorrow. Dispo - cont inpt Subjective: Pt feels better. Breathing improved. Less pain. Eating better. No fevers. Objective: Vital Signs Temp Pulse Resp BP Pulse Ox 36.4 C 58 L 16 112/64 94 04/05/17 07:34 04/05/17 07:34 04/05/17 07:34 04/05/17 07:34 04/05/17 07:34 Microbiology 04/01/17 13:20 Gram Stain - Final Pleural Fluid - Aspirate 04/02/17 11:00 Mycobacterial Smear (ZAY) - Final Pleural Fluid - Aspirate 04/03/17 09:18 Gram Stain - Final Pleural Fluid - Swab 04/03/17 09:18 Gram Stain - Final Pleural Fluid - Swab Laboratory Results 04/05/17 04:40 04/05/17 04:40 04/04/17 04/05/17 04/06/17 05:59 05:59 05:59 Intake Total 1120 950 Output Total 1189 635 20 Balance -69 315 -20 PT 15.2 SEC (12.0-15.0) H 03/31/17 13:00 INR 1.18 (0.83-1.16) H 03/31/17 13:00 - Physical Exam Constitutional: no apparent distress Eyes: PERRL Ears, Nose, Mouth, Throat: moist mucous membranes Cardiovascular: regular rate and rhythym Respiratory: no respiratory distress, other (improved air movement of RLL, no crackles or wheezes) Gastrointestinal: normoactive bowel sounds, soft, non-tender abdomen Skin: warm Musculoskeletal: full muscle strength Neurologic: AAOx3 Psychiatric: interacting appropriately ICD10 Worksheet Patient Problems: Problems Problem Status Onset Pleural effusion, right Acute
--- NOTE | 2017-04-05 09:04 | PCMIDPN ---
Assessment/Plan: Assessment/Plan: 1. Right loculated effusion/empyema s/p VATS: - VATS on 04/03/17 - CX from thoracentesis now showing STrep intermedius -Currently on Unasyn. Will narrow to Ceftriaxone - He will need at least 4 weeks of antibiotics post VATS -wbc has improved. LFt fluctuating, slightly up today. Continue to monitor. -blood cx ngtd. 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 sitting chair. feels better today compared to yesterday. less sob. less pain with deep breathing. chest tube in place. denies abd pain. had BM today after being constipated. c/o feet swelling Objective: Vital Signs Temp Pulse Resp BP Pulse Ox 36.4 C 58 L 16 112/64 94 04/05/17 07:34 04/05/17 07:34 04/05/17 07:34 04/05/17 07:34 04/05/17 07:34 Microbiology 04/01/17 13:20 Gram Stain - Final Pleural Fluid - Aspirate 04/02/17 11:00 Mycobacterial Smear (ZAY) - Final Pleural Fluid - Aspirate 04/03/17 09:18 Gram Stain - Final Pleural Fluid - Swab 04/03/17 09:18 Gram Stain - Final Pleural Fluid - Swab Laboratory Results 04/05/17 04:40 04/05/17 04:40 04/04/17 04/05/17 04/06/17 05:59 05:59 05:59 Intake Total 1120 950 Output Total 1189 635 20 Balance -69 315 -20 - Physical Exam General Appearance: alert, no apparent distress Respiratory: coarse breath sounds (decreased sounds on right overall. left lung clear), other Cardiac/Chest: regular rate, rhythm, other (chest tubes noted) Extremities: swelling (b/l feet, pitting) Abdomen: normal bowel sounds, non-tender, soft, No distended Skin: No erythema ICD10 Worksheet Patient Problems: Problems Problem Status Onset Pleural effusion, right Acute
--- NOTE | 2017-04-05 10:30 | SOAPPROG ---
SOAP Progress Note Assessment/Plan: Assessment/Plan: 66 Y M s/p R VATS c decortication with Dr. Graham. Bronchogenic CA vs dense PNA. POD#2. Pathology pending. Possible bronchoscopy today. Ok to restart plavix from VATS standpoint, but will need to check with pulmonology given bronch plans. WBCs improving. Continue chest tubes. Seen with Dr. Metcalf. S: No SOB. No complaints. O: alert, nad no air leak drainage serosanguinous ctab anteriorly and laterally rrr abd soft ext no edema 04/05/17 10:30 Objective: Vital Signs Temp Pulse Resp BP Pulse Ox 36.4 C 58 L 16 112/64 94 04/05/17 07:34 04/05/17 07:34 04/05/17 07:34 04/05/17 07:34 04/05/17 07:34 Microbiology 04/03/17 09:18 Gram Stain - Final Pleural Fluid - Swab 04/03/17 09:18 Gram Stain - Final Pleural Fluid - Swab 04/01/17 13:20 Gram Stain - Final Pleural Fluid - Aspirate 04/02/17 11:00 Mycobacterial Smear (ZAY) - Final Pleural Fluid - Aspirate Laboratory Results 04/05/17 04:40 04/05/17 04:40 04/04/17 04/05/17 04/06/17 05:59 05:59 05:59 Intake Total 1120 950 Output Total 1189 635 20 Balance -69 315 -20 PT 15.2 SEC (12.0-15.0) H 03/31/17 13:00 INR 1.18 (0.83-1.16) H 03/31/17 13:00 ICD10 Worksheet Patient Problems: Problems Problem Status Onset Pleural effusion, right Acute
--- NOTE | 2017-04-05 12:08 | SOAPPROG ---
SOAP Progress Note Assessment/Plan: Assessment: RLL Mass: Possible bronchogenic lung cancer verses dense pneumonia. Pleural effusion: Parapneumonic versus malignant. S/P VATS. Pathology appears inflammatory, negative for malignancy thus far. Post-obstructive Pneumonia: Afebrile, WBC high but stable. Switched to ceftriaxone per Infectious Disease. Smoking history: On nicotine patch, not having withdrawal. Dyspnea: Pneumonia and effusion likely major contributors, clearly has COPD/ emphysema.. CAD: S/P stent May 2016. Plavix held. Plan: Continue antibiotics and bronchopulmonary therapies. Continue present care. For bronch this afternoon. 35 min of critical care time spent directly with the patient. Discussed with pathology (Dr. Palma), the patient, nursing, and the ICU multi disciplinary team. Subjective: Doing well, some cough, no mucus. Little pain. Denies significant shortness of breath Objective: Vital Signs Temp Pulse Resp BP Pulse Ox 36.6 C 62 14 107/57 L 98 04/05/17 11:57 04/05/17 11:57 04/05/17 11:57 04/05/17 11:57 04/05/17 11:57 Microbiology 04/03/17 09:18 Gram Stain - Final Pleural Fluid - Swab 04/03/17 09:18 Gram Stain - Final Pleural Fluid - Swab 04/01/17 13:20 Gram Stain - Final Pleural Fluid - Aspirate 04/02/17 11:00 Mycobacterial Smear (ZAY) - Final Pleural Fluid - Aspirate Laboratory Results 04/05/17 04:40 04/05/17 04:40 04/04/17 04/05/17 04/06/17 05:59 05:59 05:59 Intake Total 1120 950 Output Total 1189 635 20 Balance -69 315 -20 PT 15.2 SEC (12.0-15.0) H 03/31/17 13:00 INR 1.18 (0.83-1.16) H 03/31/17 13:00 Laboratory Tests 04/05/17 04:40 Calcium 7.3 L Total Bilirubin 0.2 AST 168 H ALT 211 H Albumin 1.9 L Pleural fluid tissue pathology negative for malignancy. Appears inflammatory. Discussed with pathology. Physical Exam - Physical Exam General Appearance: alert, no apparent distress, thin, other (Up in chair) EENT: PERRL/EOMI, other (Nasal cannula in place at 1-2 L.) Neck: normal inspection (No JVD) Respiratory: decreased breath sounds (At the right base, rales present), rales, other (Chest tubes in place, little output.), No rhonchi Cardiac/Chest: regular rate, rhythm, bradycardia Abdomen: normal bowel sounds, non-tender, soft Skin: normal color, warm/dry Extremities: No pedal edema Neuro/Psych: no motor/sensory deficits, No cognition abnormalities ICD10 Worksheet Patient Problems: Problems Problem Status Onset Pleural effusion, right Acute
[2017-04-05] MEDS ORDERED: LIDOCAINE 2% JELLY 5 ML TUBE ONE (12:16)
[2017-04-05] MEDS ORDERED: LIDOCAINE 1% 300 MG/30 ML SDV ONE (12:16)
[2017-04-05] MEDS ORDERED: LIDOCAINE HCL 4% TOPICAL SOLN 50ML ONE (12:17)
[2017-04-05] MEDS ORDERED: ALBUTEROL 3 ML DEYVIAL ONE (13:34)
[2017-04-05] MEDS ORDERED: ALBUTEROL 3 ML DEYVIAL IH ONE (14:00)
[2017-04-05] MEDS ORDERED: MIDAZOLAM 2 MG/2 ML VIAL ONE (14:08)
[2017-04-05] MEDS ORDERED: fentaNYL 100 MCG/2 ML INJ ONE (14:09)
[2017-04-05] MEDS ORDERED: BENZOCAINE UNIT DOSE SPRAY HURRICAINE MM ONE (14:28)
[2017-04-05] MEDS ORDERED: fentaNYL 100 MCG/2 ML INJ IVP ONE (14:32)
[2017-04-05] MEDS ORDERED: MIDAZOLAM 2 MG/2 ML VIAL IVP ONE (14:32)
--- NOTE | 2017-04-05 15:36 | PDPROPOC ---
Sedation Plan of Care Sedation Plan of Care: vital signs stable, mental status noted, patient educated of risks, benefits, alternatives, patient can tolerate sedation ASA Classification: ASA 2 Planned drugs: fentanyl, midazolam Mallampati Score: Class 1 Mallampati Reference Image: Patient passed 3-3-2 rule?: Yes
[2017-04-05] MEDS: traMADol 50 MG TAB PO PRN (21:20)
[2017-04-06] MEDS: traMADol 50 MG TAB PO PRN ×2 (03:55→18:50)
[2017-04-06 05:20] LABS: % IMMATURE GRANULYOCYTES 1.4 % (0.0-1.1); ABSOLUTE IMMATURE GRANULOCYTES 0.15 10^3/uL (0.00-0.10); ADD DIFF? NO; ADD MORPH? NO; ADD SCAN? NO; ATYPICAL LYMPHOCYTE FLAG 0 (0-99); FRAGMENT RBC FLAG 0 (0-99); HEMATOCRIT 29.9 % (40.0-51.0); HEMOGLOBIN 9.9 g/dL (13.7-17.5); LEFT SHIFT FLG 10 (0-99); LIPEMIA HEMOLYSIS FLAG 80 (0-99); MEAN CELL HEMOGLOBIN 31.7 pg (27.9-34.1); MEAN CELL HEMOGLOBIN CONCENTR. 33.1 g/dL (32.4-36.7); MEAN CELL VOLUME 95.8 fL (81.5-99.8); MEAN PLATELET VOLUME 8.9 fL (8.7-11.7); PLATELET CLUMPS FLAG 0 (0-99); PLATELET COUNT 346 10^3/uL (150-400); RED BLOOD CELL COUNT 3.12 10^6/uL (4.40-6.38); RED CELL DISTRIBUTION WIDTH 13.2 % (11.5-15.2)
[2017-04-06 07:01] LABS: BILIRUBIN,TOTAL 0.1 mg/dL (0.1-1.4); BILIRUBIN-CONJUGATED 0.1 mg/dL (0.0-0.5)
[2017-04-06] MEDS: KETOROLAC 30 MG/1 ML SDV IVP PRN ×3 (08:21→23:21)
[2017-04-06] MEDS: ASPIRIN 81 MG CHEWABLE TAB PO SCH (08:25)
[2017-04-06] MEDS: NICOTINE 14 MG/24 HR PATCH TD SCH (08:25)
[2017-04-06] MEDS: CLOPIDOGREL BISULFATE 75 MG TAB PO SCH (08:25)
--- NOTE | 2017-04-06 10:17 | PCMIDPN ---
Assessment/Plan: Assessment: Right-sided empyema secondary to Streptococcus intermedius. Patient is making gradual improvement. He still has chest tubes in on the right side which are painful. He is worried about bronchial biopsy results. These are not available yet. At this point we will continue to treat his Streptococcus intermedius pleural space infection with IV ceftriaxone 2 g daily. Anticipate a 4 week course. Will eventually need to have PICC placement and arrangement for outpatient IV antibiotics. Plan: 1. Continue IV ceftriaxone at 2 g daily. Anticipate a 4 week total course. 2. Plan for a PICC line. 3. Arrange for home IV antibiotics once appropriate. 04/06/17 12:23 Subjective: Patient is sitting up in his chair. Complains of pain. Tends to fall behind with pain control during the night time. Eating breakfast. Good appetite. No fevers or chills. No rash. Objective: Ceftriaxone # 2 Vital Signs Temp Pulse Resp BP Pulse Ox 36.6 C 65 15 107/64 92 04/06/17 08:00 04/06/17 08:00 04/06/17 08:00 04/06/17 08:00 04/06/17 08:00 Microbiology 04/01/17 13:20 Gram Stain - Final Pleural Fluid - Aspirate 03/31/17 19:34 Blood Culture - Final Blood 03/31/17 17:50 Blood Culture - Final Blood 04/03/17 09:18 Gram Stain - Final Pleural Fluid - Swab 04/03/17 09:18 Gram Stain - Final Pleural Fluid - Swab Laboratory Results 04/06/17 03:54 04/05/17 04:40 04/05/17 04/06/17 04/07/17 05:59 05:59 05:59 Intake Total 950 950 Output Total 635 285 Balance 315 665 - Physical Exam General Appearance: WD/WN, alert, no apparent distress, non-toxic Respiratory: lungs clear, normal breath sounds, other (Decreased breath sounds right lower lobe), No respiratory distress, No crackles Cardiac/Chest: regular rate, rhythm, No tachycardia Extremities: non-tender, normal inspection Skin: normal color, warm/dry, No rash Neuro/Psych: alert, normal mood/affect, oriented x 3 ICD10 Worksheet Patient Problems: Problems Problem Status Onset Pleural effusion, right Acute
[2017-04-06] MEDS: ENOXAPARIN 40 MG/0.4 ML SYR SC SCH (11:16)
--- NOTE | 2017-04-06 16:42 | ASMTCMCOM ---
CM Note CM Note Notes: 04/06/2017 Case Management Note Met w/pt. Pt lives alone but has strong community support. His neighbors have planned a meal brigade and will supply meals every 2-3 days indefinately. He has support from his son Carmelo. 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 After discussion, pt requested infusion services referrals to [email or web address], [facility] and [facility]. He requested financial information from the companies regarding co pays. He may chose to use the out patient infusion clinic for his buttermaker IV abx if costs are high with home infusion. [facility]aire supply the oral surgeon. Confirmed acceptance today. Case Management will continue to follow. Date Signed: 04/06/2017 04:42 PM Electronically Signed By:Marlys Andrew RN
--- NOTE | 2017-04-06 18:48 | GPN ---
[f rep st] PROCEDURE NOTE PROCEDURE: Bronchoscopy. INDICATION: Right lower lobe mass in a patient with COPD and emphysema and a recent VATS procedure f or a right loculated effusion. DESCRIPTION OF PROCEDURE: The procedure was done in the endoscopy unit. Informed consent was obtain ed from the patient. Appropriate time-out was done. N95 masks were worn. Topical anesthesia includ ed a small amount of Hurricaine spray and 3 cc of 4% lidocaine to the posterior oropharynx. Approxim ately 25 mL of 1% lidocaine was used to anesthetize the vocal cords and lower tracheobronchial tree. Conscious sedation included 100 mcg of fentanyl and 4 mg of Versed given intravenously. The fiberoptic bronchoscope was passed via bite block orally in the larynx. Laryngeal structures wer e normal. The vocal cords move normally with cough and respiration. There were no vocal cord abnorm alities. The bronchoscope was passed through the cords and into the trachea and then into the lower tracheobronchial tree bilaterally. All areas were observed to at least the first subsegmental level. Anatomy was normal on the left side and the right upper lobe. In the right lower lobe and right mi ddle lobe the mucosa was somewhat erythematous and edematous. However, no endobronchial lesions were seen. There was no evidence of obstruction. There was no evidence of significant extrinsic julio nito. No significant mucus was found. Washings were taken from the right lower lobe/right middle lo be area and combined. A cytology brush sample was taken from the right lower lobe followed by yi florez transbronchial biopsies under fluoroscopic guidance. The patient tolerated the procedure well. There were no complications. Bleeding was minimal, probab ly less than 5 or 6 cc. Vital signs and oxygen saturations on supplemental oxygen remained normal th roughout the procedure. There was no evidence of a pneumothorax by fluoroscopy at the end of the pro cedure. A chest x-ray was pending at the time of this dictation. IMPRESSION: Normal endobronchial anatomy on the right side. The mucosa was erythematous and edemato us in the right lower lobe and, to some extent, the right middle lobe, however, there was no evidence of mucosal malignancy, endobronchial lesions, or extrinsic compression. No significant mucus or muc us plugging was found. Appropriate samples were sent to the laboratory. /[id number]/MODL
--- NOTE | 2017-04-06 19:56 | HOSPPROG ---
Hospitalist Progress Note Assessment/Plan: # Right sided empyema 2/2 streptococcus - s/p VATS 04/[address] x2 BCx's NGTD. - pathology pending from bx CXR (personally reviewed and interpreted) slightly decreased effusion on right - CT in position x 2 -cont Ceftriaxone per ID -cont CT per pulmonary and surgery 3 leukocytosis 26 -> 11 on antibiotics - cont # Elevated LFT's - No RUQ tenderness. Hep panel neg. Abrupt rise, now trending down s/p VATS. Unasyn or Ertapenem not common causes. RUQ u/s neg for obstructive process -cont to trend -holding statin # Hypoxemic respiratory failure - Secondary to above. oxygen saturations weaned to 95% on 1L # CAD with stenting in 05/2016 - he had a NIYA placed in LAD in 05/2016. -Plavix held for planned procedures, resume in am -cont ASA # COPD - No wheezing, prn nebs #Tobacco abuse - encourage cessation #DNR #DVT PPLX - Lovenox held yesterday for VATS. resume tomorrow. #Dispo -> 2 MN requires continue care with CT I have discussed the case with RN - pt ambulating independently and taking PO Subjective: feeling surprisingly well Objective: Vital Signs Temp Pulse Resp BP Pulse Ox 36.6 C 71 11 L 132/76 H 89 L 04/06/17 16:00 04/06/17 16:00 04/06/17 16:00 04/06/17 16:00 04/06/17 16:00 Microbiology 04/01/17 13:20 Gram Stain - Final Pleural Fluid - Aspirate 04/05/17 15:00 Gram Stain - Final Lung Right Lower Lobe - Bronchial Washings 04/03/17 09:18 Gram Stain - Final Pleural Fluid - Swab 04/03/17 09:18 Gram Stain - Final Pleural Fluid - Swab 03/31/17 19:34 Blood Culture - Final Blood 03/31/17 17:50 Blood Culture - Final Blood Laboratory Results 04/06/17 03:54 04/05/17 04:40 04/05/17 04/06/17 04/07/17 05:59 05:59 05:59 Intake Total 950 950 50 Output Total 635 285 90 Balance 315 665 -40 PT 15.2 SEC (12.0-15.0) H 03/31/17 13:00 INR 1.18 (0.83-1.16) H 03/31/17 13:00 - Physical Exam Constitutional: no apparent distress Eyes: anicteric sclera Ears, Nose, Mouth, Throat: moist mucous membranes Cardiovascular: regular rate and rhythym Respiratory: reduced air movement, No expiratory wheeze Gastrointestinal: normoactive bowel sounds Genitourinary: no bladder fullness Skin: warm Musculoskeletal: No asymmetric calves Neurologic: AAOx3 Psychiatric: interacting appropriately Lymph, Heme, Immunologic: no cervical LAD ICD10 Worksheet Patient Problems: Problems Problem Status Onset Pleural effusion, right Acute
--- NOTE | 2017-04-06 20:13 | SOAPPROG ---
SOAP Progress Note Assessment/Plan: Assessment: RLL Mass: Possible bronchogenic lung cancer verses dense pneumonia. Bronchoscopy yesterday did not show any obvious evidence of lung cancer. Pathology/cytology is pending. Pleural effusion: Parapneumonic versus malignant. S/P VATS. Pathology appears inflammatory, negative for malignancy thus far. Post-obstructive Pneumonia: Afebrile, WBC high but stable. Switched to ceftriaxone per Infectious Disease. Smoking history: On nicotine patch. Dyspnea: Pneumonia and effusion likely major contributors, clearly has COPD/ emphysema.. CAD: S/P stent May 2016. Plavix/ASA to be restarted. Plan: Continue antibiotics and bronchopulmonary therapies. Continue present care. Removal of chest tubes per surgery. Discussed with Dr. Metcalf. Await pathology/cytology/further cultures from bronchoscopy yesterday. Subjective: Doing well, no specific complaints, not a lot of pain from the chest tubes. Denies shortness of breath walking around the halls. Objective: Vital Signs Temp Pulse Resp BP Pulse Ox 36.6 C 71 11 L 132/76 H 89 L 04/06/17 16:00 04/06/17 16:00 04/06/17 16:00 04/06/17 16:00 04/06/17 16:00 Microbiology 04/01/17 13:20 Gram Stain - Final Pleural Fluid - Aspirate 04/05/17 15:00 Gram Stain - Final Lung Right Lower Lobe - Bronchial Washings 04/03/17 09:18 Gram Stain - Final Pleural Fluid - Swab 04/03/17 09:18 Gram Stain - Final Pleural Fluid - Swab 03/31/17 19:34 Blood Culture - Final Blood 03/31/17 17:50 Blood Culture - Final Blood Laboratory Results 04/06/17 03:54 04/05/17 04:40 04/05/17 04/06/17 04/07/17 05:59 05:59 05:59 Intake Total 950 950 50 Output Total 635 285 90 Balance 315 665 -40 PT 15.2 SEC (12.0-15.0) H 03/31/17 13:00 INR 1.18 (0.83-1.16) H 03/31/17 13:00 CXR: Right basilar opacity persists comma chest tubes in place. Physical Exam - Physical Exam General Appearance: alert, no apparent distress EENT: other (Oxygen in place at 1 L) Neck: normal inspection Respiratory: decreased breath sounds (On right compared to left), rales (At right base), other (Chest tubes on right, tube noises present. Drainage from the chest tubes has improved: 200 from 1, 75 from the other), No normal breath sounds Cardiac/Chest: regular rate, rhythm Abdomen: normal bowel sounds, non-tender, soft Skin: normal color, warm/dry Extremities: No pedal edema Neuro/Psych: no motor/sensory deficits, No cognition abnormalities ICD10 Worksheet Patient Problems: Problems Problem Status Onset Pleural effusion, right Acute
[2017-04-06] MEDS ORDERED: SODIUM CL NASAL 45 ML BTL EACHNARE PRN (23:17)
[2017-04-06] MEDS: oxyCODONE IR 5 MG TAB PO PRN (23:23)
[2017-04-06] MEDS: CANN-EASE 2 GM TUBE TP PRN (23:35)
[2017-04-07 05:13] LABS: HEMATOCRIT 27.7 % (40.0-51.0); HEMOGLOBIN 9.5 g/dL (13.7-17.5); MEAN CELL HEMOGLOBIN 32.5 pg (27.9-34.1); MEAN CELL HEMOGLOBIN CONCENTR. 34.3 g/dL (32.4-36.7); MEAN CELL VOLUME 94.9 fL (81.5-99.8); RED BLOOD CELL COUNT 2.92 10^6/uL (4.40-6.38); RED CELL DISTRIBUTION WIDTH 13.2 % (11.5-15.2)
[2017-04-07 05:29] LABS: ANION GAP 8 mEq/L (8-16); CALCIUM 7.7 mg/dL (8.5-10.4); CARBON DIOXIDE 25 mEq/l (22-31); CHLORIDE 108 mEq/L (97-110); CREATININE 0.8 mg/dL (0.7-1.3); GLOMERULAR FILTRATION RATE > 60; GLUCOSE 78 mg/dL (70-100); POTASSIUM 4.4 mEq/L (3.5-5.2); SODIUM 141 mEq/L (134-144)
[2017-04-07] MEDS: ENOXAPARIN 40 MG/0.4 ML SYR SC SCH (08:56)
[2017-04-07] MEDS: ASPIRIN 81 MG CHEWABLE TAB PO SCH (08:57)
[2017-04-07] MEDS: CLOPIDOGREL BISULFATE 75 MG TAB PO SCH (08:57)
[2017-04-07] MEDS: oxyCODONE IR 5 MG TAB PO PRN ×2 (08:57→17:48)
[2017-04-07] MEDS: NICOTINE 14 MG/24 HR PATCH TD SCH (08:57)
--- NOTE | 2017-04-07 09:32 | SOAPPROG ---
SOAP Progress Note Assessment/Plan: Assessment: PULLED OUT ONE OF HIS TUBES LAST PM/ AFEBRILE/ WOUND OK/ BS EQUAL/CXR OK/ DECREASED TUBE DRAINAGE Plan:DC CHEST TUBE TODAY/ HOME IN 1-2 DAYS 04/07/17 09:30 Objective: Vital Signs Temp Pulse Resp BP Pulse Ox 36.6 C 60 18 132/70 H 95 04/07/17 07:46 04/07/17 07:46 04/07/17 07:46 04/07/17 07:46 04/07/17 07:46 Microbiology 04/05/17 15:00 Mycobacterial Smear (ZAY) - Final Lung Right Lower Lobe - Bronchial Washings 04/01/17 13:20 Gram Stain - Final Pleural Fluid - Aspirate 04/05/17 15:00 Gram Stain - Final Lung Right Lower Lobe - Bronchial Washings 04/03/17 09:18 Gram Stain - Final Pleural Fluid - Swab 04/03/17 09:18 Gram Stain - Final Pleural Fluid - Swab 03/31/17 19:34 Blood Culture - Final Blood 03/31/17 17:50 Blood Culture - Final Blood Laboratory Results 04/07/17 04:31 04/07/17 04:31 04/06/17 04/07/17 04/08/17 05:59 05:59 05:59 Intake Total 950 350 Output Total 285 670 30 Balance 665 -320 -30 PT 15.2 SEC (12.0-15.0) H 03/31/17 13:00 INR 1.18 (0.83-1.16) H 03/31/17 13:00 ICD10 Worksheet Patient Problems: Problems Problem Status Onset Pleural effusion, right Acute
[2017-04-07] MEDS ORDERED: ALTEPLASE 2 MG VIAL IVP PRN (14:31)
--- NOTE | 2017-04-07 14:40 | PCMIDPN ---
Assessment/Plan: #R sided streptococcal empyema s/p VATs, CXR from today after CT removed shows general improvement. Marked improvement in leukocytosis. AF --continue ceftriaxone for total of 4 weeks --place PICC line, interagency completed #Elevated LFTs; generally trending down, hep serologies negative; US showed mild hepatic enlargement --monitor while on ceftriaxone meds Ceftriaxone 2gm IV daily #3 Unasyn 04/02- invanz & levoflox 04/01 Subjective: patient reports he now recognizes he has not been feeling well for a couple months still with cough and R sided chest pain at CT sites Objective: Vital Signs Temp Pulse Resp BP Pulse Ox 37.0 C 65 20 112/57 L 93 04/07/17 11:30 04/07/17 11:30 04/07/17 11:30 04/07/17 11:30 04/07/17 11:30 Microbiology 04/03/17 09:18 Gram Stain - Final Pleural Fluid - Swab 04/03/17 09:18 Gram Stain - Final Pleural Fluid - Swab 04/01/17 13:20 Gram Stain - Final Pleural Fluid - Aspirate 04/05/17 15:00 Gram Stain - Final Lung Right Lower Lobe - Bronchial Washings 04/05/17 15:00 Mycobacterial Smear (ZAY) - Final Lung Right Lower Lobe - Bronchial Washings 03/31/17 19:34 Blood Culture - Final Blood 03/31/17 17:50 Blood Culture - Final Blood Laboratory Results 04/07/17 04:31 04/07/17 04:31 04/06/17 04/07/17 04/08/17 05:59 05:59 05:59 Intake Total 950 350 Output Total 285 670 30 Balance 665 -320 -30 - Physical Exam General Appearance: alert, no apparent distress, non-toxic EENT: pale conjunctiva, No thrush Respiratory: other (Crackles R base), No accessory muscle use Neck: supple Cardiac/Chest: regular rate, rhythm Extremities: No pedal edema Skin: No rash Neuro/Psych: alert, normal mood/affect, oriented x 3 - Time Spent With Patient Time Spent with Patient: greater than 35 minutes (reviewing CXRs, labs and risk & benefits of PICC line with patient) Time Spent with Patient: Greater than 35 minutes spent on this patients care, greater than 50% of time spent counseling, educating, and coordinating care regarding the above mentioned plan. ICD10 Worksheet Patient Problems: Problems Problem Status Onset Pleural effusion, right Acute
--- NOTE | 2017-04-07 15:56 | ASMTCMCOM ---
CM Note CM Note Notes: CM met w/ pt for dispo planning. CM informed pt the cost of home infusion vs outpatient infusion. CM spoke w/ LEONILA Altamirano regarding d/c POC. Pt is scheduled to have a PICC line placed at some point. Pt will need 4 weeks of IV antibiotics daily. CM [facility] to assess [facility] for Medicaid qualifying medicare benefits (QMB). Pt does not qualify. Pt has selected [place], as it is the cheapest option at this point. Rhina will contact pt directly to go over admission process. CM notified [facility] of possible tomorrow for tomorrow. CM to follow. Plan: Rhina w/ LEONILA CRUM Date Signed: 04/07/2017 03:56 PM Electronically Signed By:PARISH Deluna
--- NOTE | 2017-04-07 16:06 | HOSPPROG ---
Hospitalist Progress Note Assessment/Plan: # Right sided empyema 2/2 streptococcus - s/p VATS 04/[address] x2 BCx's NGTD. - pathology from VATS negative for malignancy patient accidentally pulled one of his two chest tubes CXR (personally reviewed and interpreted) slightly decreased effusion on right - CT in position x 2 -cont Ceftriaxone per ID -surgery planning to dc Ct today # leukocytosis 26 -> 11 on antibiotics - cont # Elevated LFT's - No RUQ tenderness. Hep panel neg. Abrupt rise, now trending down s/p VATS. Unasyn or Ertapenem not common causes. RUQ u/s neg for obstructive process -cont to trend -holding statin # Hypoxemic respiratory failure - Secondary to above. oxygen saturations weaned to 97% on RA # CAD with stenting in 05/2016 - he had a NIYA placed in LAD in 05/2016. -Plavix held for planned procedures, resume in am -cont ASA # COPD - No wheezing, prn nebs #Tobacco abuse - encourage cessation #DNR #DVT PPLX - Lovenox held yesterday for VATS. resume tomorrow. #Dispo -> 2 MN requires continue care with CT I have discussed the case with Dr. Ray - plan for dc of CT today and follow overnight Subjective: pain improved Objective: Vital Signs Temp Pulse Resp BP Pulse Ox 37.0 C 65 20 112/57 L 93 04/07/17 11:30 04/07/17 11:30 04/07/17 11:30 04/07/17 11:30 04/07/17 11:30 Microbiology 04/03/17 09:18 Gram Stain - Final Pleural Fluid - Swab 04/03/17 09:18 Gram Stain - Final Pleural Fluid - Swab 04/01/17 13:20 Gram Stain - Final Pleural Fluid - Aspirate 04/05/17 15:00 Gram Stain - Final Lung Right Lower Lobe - Bronchial Washings 04/05/17 15:00 Mycobacterial Smear (ZAY) - Final Lung Right Lower Lobe - Bronchial Washings Laboratory Results 04/07/17 04:31 04/07/17 04:31 04/06/17 04/07/17 04/08/17 05:59 05:59 05:59 Intake Total 950 350 Output Total 285 670 30 Balance 665 -320 -30 PT 15.2 SEC (12.0-15.0) H 03/31/17 13:00 INR 1.18 (0.83-1.16) H 03/31/17 13:00 - Physical Exam Constitutional: no apparent distress Eyes: anicteric sclera Ears, Nose, Mouth, Throat: moist mucous membranes Cardiovascular: regular rate and rhythym Respiratory: reduced air movement Gastrointestinal: normoactive bowel sounds Genitourinary: no bladder fullness Skin: warm Musculoskeletal: No asymmetric calves Neurologic: AAOx3 Psychiatric: interacting appropriately Lymph, Heme, Immunologic: no cervical LAD ICD10 Worksheet Patient Problems: Problems Problem Status Onset Pleural effusion, right Acute
--- NOTE | 2017-04-07 16:51 | PDIAF ---
- Diagnosis Diagnosis: R sided streptococcal pulmonary empyema Code Status: Do Not Resuscitate - Medication Management Discharge Medications: Medications to Continue on Transfer Clopidogrel Bisulfate [Plavix (*)] 75 mg PO DAILY 03/14/17 [Last Taken 03/30/17] Aspirin [Aspirin 81mg (*)] 81 mg PO DAILY 03/31/17 [Last Taken 03/30/17] Atorvastatin Calcium [Lipitor 10 mg (*)] 10 mg PO HS 03/31/17 [Last Taken ] Long-Term Antibiotics: ceftriaxone 2gm IV daily Magnetic Resonance Technologist Antibiotic Stop Date: 05/02/17 Discharge Medications: Refer to the Discharge Home Medication list for PRN reason. PICC Care - Routine: Yes - Orders Services needed: Home Care, Registered Nurse, Physical Therapy Home Care Face to Face: I certify that this patient was under my care and that I had the required [id number] encounter meeting the encounter requirements on the discharge day. My findings support the fact that the patient is homebound as defined in Home Care Face to Face Continued: CMS Chapter 7 Medicare Benefits Manual 30.1.1 , The condition of the patient is such that there exists a normal inability to leave home and consequently, leaving home would require a considerable and taxing effort. - Labs/Radiology CBC w/diff Date: 04/11/17 (weekly Tuesday) CMP Date: 04/11/17 (weekly Tuesday) Call or Fax Lab and Imaging Results to: DR Jaylene Meadows [phone] - Follow Up Care Current Providers and Referrals: Patient,NotPresent [Unknown] - As per Instructions Jaylene Meadows MD [Medical Doctor] - 04/14/17 1:00 pm
--- NOTE | 2017-04-07 19:44 | SOAPPROG ---
SOAP Progress Note Assessment/Plan: Assessment: RLL Mass: Possible bronchogenic lung cancer verses dense pneumonia. Bronchoscopy yesterday showed no obvious evidence of lung cancer and pathology is negative for malignancy. Cytology is pending. Pleural effusion: Parapneumonic, S/P VATS. Pathology appears inflammatory, negative for malignancy. Pneumonia: Afebrile, WBC remains somewhat high at 11,000. No evidence of endobronchial obstruction was found on bronchoscopy, at least to the subsegmental level on the right. On ceftriaxone per Infectious Disease. Smoking history: On nicotine patch. Dyspnea: Improving. Pneumonia and effusion likely major contributors, clearly has COPD/emphysema.. CAD: S/P stent May 2016. On Plavix/ASA to be restarted. Plan: Continue antibiotics and bronchopulmonary therapies. Continue present care. Await cytologies. Consider discharge home in the next few days on outpatient oral antibiotics and bronchopulmonary therapies, with clinical follow -up and x-rays as an outpatient.. Subjective: Doing well. Chest tubes out. More ambulatory. Denies significant shortness of breath on his walks or with activity in his room, but not doing much. Objective: Vital Signs Temp Pulse Resp BP Pulse Ox 36.4 C 70 20 123/64 H 92 04/07/17 16:00 04/07/17 16:00 04/07/17 16:00 04/07/17 16:00 04/07/17 16:00 Microbiology 04/03/17 09:18 Gram Stain - Final Pleural Fluid - Swab 04/03/17 09:18 Gram Stain - Final Pleural Fluid - Swab 04/01/17 13:20 Gram Stain - Final Pleural Fluid - Aspirate 04/05/17 15:00 Gram Stain - Final Lung Right Lower Lobe - Bronchial Washings 04/05/17 15:00 Mycobacterial Smear (ZAY) - Final Lung Right Lower Lobe - Bronchial Washings Laboratory Results 04/07/17 04:31 04/07/17 04:31 04/06/17 04/07/17 04/08/17 05:59 05:59 05:59 Intake Total 347 188 5939 Output Total 285 670 30 Balance 665 -320 970 PT 15.2 SEC (12.0-15.0) H 03/31/17 13:00 INR 1.18 (0.83-1.16) H 03/31/17 13:00 Pathology from bronchoscopy in biopsies is negative for malignancy. Cytologies are pending but likely will be negative. Chest x-ray: Taken prior to removal of his 2nd tube. Improved density at the right base remains present. Physical Exam - Physical Exam General Appearance: alert, no apparent distress EENT: other (Nasal cannula at 1-2 L) Neck: normal inspection Respiratory: lungs clear (Anteriorly), decreased breath sounds (At bases, especially on right), rales (At right base.), No pleural rub Cardiac/Chest: regular rate, rhythm Abdomen: normal bowel sounds, non-tender, soft Skin: normal color, warm/dry Extremities: No pedal edema Neuro/Psych: no motor/sensory deficits, No cognition abnormalities ICD10 Worksheet Patient Problems: Problems Problem Status Onset Pleural effusion, right Acute
[2017-04-08] MEDS: traMADol 50 MG TAB PO PRN (04:50)
[2017-04-08 05:24] LABS: ALANINE AMINOTRANSFERASE 140 IU/L (21-72); ALKALINE PHOSPHATASE 204 IU/L (38-126); ANION GAP 9 mEq/L (8-16); ASPARTATE AMINOTRANSFERASE 84 IU/L (17-59); BILIRUBIN,TOTAL 0.3 mg/dL (0.1-1.4); CALCIUM 7.6 mg/dL (8.5-10.4); CARBON DIOXIDE 26 mEq/l (22-31); CHLORIDE 104 mEq/L (97-110); CREATININE 0.6 mg/dL (0.7-1.3); GLOMERULAR FILTRATION RATE > 60; GLUCOSE 94 mg/dL (70-100); POTASSIUM 4.4 mEq/L (3.5-5.2); SODIUM 139 mEq/L (134-144); TOTAL PROTEIN 4.2 g/dL (6.3-8.2)
[2017-04-08] MEDS: CLOPIDOGREL BISULFATE 75 MG TAB PO SCH (08:01)
[2017-04-08] MEDS: ASPIRIN 81 MG CHEWABLE TAB PO SCH (08:01)
[2017-04-08] MEDS: NICOTINE 14 MG/24 HR PATCH TD SCH (08:01)
[2017-04-08] MEDS: ENOXAPARIN 40 MG/0.4 ML SYR SC SCH (08:01)
[2017-04-08] MEDS ORDERED: FUROSEMIDE 20 MG/2 ML VIAL IVP ONE (09:21)
--- NOTE | 2017-04-08 11:03 | ASMTCMCOM ---
CM Note CM Note Notes: 04/08/2018 Case Management Note Core rep here for pt teaching for IV antibiotics. Pt is too fatigued to participate in teaching at this time. [place] [facility] d/c poc: Home with [facility] RN and IV antibiotics supplied by [facility] when medically stable. Case Management to follow. Date Signed: 04/08/2017 11:03 AM Electronically Signed By:Marlys Andrew RN
--- NOTE | 2017-04-08 11:08 | SOAPPROG ---
SOAP Progress Note Assessment/Plan: Assessment: 66-year-old male status post VATS surgery for pneumonia Chest tubes removed just without complication with no pneumothorax on follow-up x-ray, patient reports he slowly getting his strength back, he is looking forward to going home 1-2 days, no shortness of breath, no chest pain Physical exam Comfortable alert No signs of respiratory distress Right chest wall bandage dry, small amount of crackles right lower lobe Plan: Okay for discharge from surgery perspective, placed follow-up instructions in the discharge summary 04/08/17 11:07 Objective: Vital Signs Temp Pulse Resp BP Pulse Ox 36.9 C 61 14 121/64 H 2 L 04/08/17 07:51 04/08/17 07:51 04/08/17 07:51 04/08/17 07:51 04/08/17 07:51 Microbiology 04/05/17 15:00 Gram Stain - Final Lung Right Lower Lobe - Bronchial Washings 04/03/17 09:18 Gram Stain - Final Pleural Fluid - Swab 04/03/17 09:18 Gram Stain - Final Pleural Fluid - Swab 04/01/17 13:20 Gram Stain - Final Pleural Fluid - Aspirate Laboratory Results 04/07/17 04:31 04/08/17 04:55 04/07/17 04/08/17 04/09/17 05:59 05:59 05:59 Intake Total 350 1450 Output Total 670 30 Balance -320 1420 PT 15.2 SEC (12.0-15.0) H 03/31/17 13:00 INR 1.18 (0.83-1.16) H 03/31/17 13:00 ICD10 Worksheet Patient Problems: Problems Problem Status Onset Pleural effusion, right Acute
--- NOTE | 2017-04-08 11:31 | PCMIDPN ---
Assessment/Plan: #R sided streptococcal empyema s/p VATs, CXR from today after CT removed shows general improvement. Marked improvement in leukocytosis. AF --continue ceftriaxone for total of 4 weeks --patient not feeling as well today, no sleep last night, probably best to delay dc till tomorrow. #Elevated LFTs; generally trending down, hep serologies negative; US showed mild hepatic enlargement --monitor while on ceftriaxone # C albicans in BAL c/w colonization meds Ceftriaxone 2gm IV daily #4 Unasyn 04/02- invanz & levoflox 04/01 Subjective: patient feeling quite fatigued Objective: Vital Signs Temp Pulse Resp BP Pulse Ox 36.9 C 61 14 121/64 H 2 L 04/08/17 07:51 04/08/17 07:51 04/08/17 07:51 04/08/17 07:51 04/08/17 07:51 Microbiology 04/05/17 15:00 Gram Stain - Final Lung Right Lower Lobe - Bronchial Washings 04/03/17 09:18 Gram Stain - Final Pleural Fluid - Swab 04/03/17 09:18 Gram Stain - Final Pleural Fluid - Swab 04/01/17 13:20 Gram Stain - Final Pleural Fluid - Aspirate Laboratory Results 04/07/17 04:31 04/08/17 04:55 04/07/17 04/08/17 04/09/17 05:59 05:59 05:59 Intake Total 350 1450 Output Total 670 30 Balance -320 1420 - Physical Exam General Appearance: alert, no apparent distress, thin EENT: No scleral icterus Respiratory: crackles (R base), coarse breath sounds, No accessory muscle use Neck: supple Cardiac/Chest: regular rate, rhythm Extremities: pedal edema Abdomen: non-tender, soft Male Genitalia: No marcum Skin: No rash, No embolic lesions Neuro/Psych: alert, normal mood/affect, oriented x 3 - Line/s RUE PICC Lines: No drainage, No erythema - Time Spent With Patient Time Spent with Patient: greater than 35 minutes Time Spent with Patient: Greater than 35 minutes spent on this patients care, greater than 50% of time spent counseling, educating, and coordinating care regarding the above mentioned plan. ICD10 Worksheet Patient Problems: Problems Problem Status Onset Pleural effusion, right Acute
[2017-04-08] MEDS: oxyCODONE IR 5 MG TAB PO PRN (13:52)
[2017-04-08] MEDS: CANN-EASE 2 GM TUBE TP PRN (14:24)
--- NOTE | 2017-04-08 17:27 | HOSPPROG ---
Hospitalist Progress Note Assessment/Plan: * Right sided empyema due to RLL pneumonia - strep intermedius s/p VATS - chest tubes out -cytology negative - last CT did not show evidence for mass -IV ceftriaxone * Increased LFT - improving -follow * Acute respiratory failure * CAD/stent 05/2016 -resume ASA/Plavix * COPD * Tobacco dependence - patch Subjective: Feels bad today Objective: Vital Signs Temp Pulse Resp BP Pulse Ox 36.6 C 63 16 92/48 L 93 04/08/17 15:02 04/08/17 15:36 04/08/17 15:02 04/08/17 15:36 04/08/17 15:02 Microbiology 04/05/17 15:00 Gram Stain - Final Lung Right Lower Lobe - Bronchial Washings 04/03/17 09:18 Gram Stain - Final Pleural Fluid - Swab 04/03/17 09:18 Gram Stain - Final Pleural Fluid - Swab 04/01/17 13:20 Gram Stain - Final Pleural Fluid - Aspirate Anaerobic Culture - Final Streptococcus Intermedius Laboratory Results 04/07/17 04:31 04/08/17 04:55 04/07/17 04/08/17 04/09/17 05:59 05:59 05:59 Intake Total 350 1450 500 Output Total 255 31 5832 Balance -320 1420 -650 PT 15.2 SEC (12.0-15.0) H 03/31/17 13:00 INR 1.18 (0.83-1.16) H 03/31/17 13:00 d/w Dr. mackenzie - watch one more day due to patient feeling poorly CT chest - no RLL mass, just consolidation - Physical Exam Constitutional: no apparent distress, appears nourished, not in pain Cardiovascular: regular rate and rhythym, no murmur, rub, or gallop Respiratory: no respiratory distress, no rales or rhonchi, clear to auscultation Gastrointestinal: normoactive bowel sounds, soft, non-tender abdomen, no palpable masses Skin: no rashes or abrasions, no fluctuance, no induration Neurologic: AAOx3, sensation intact bilaterally Psychiatric: interacting appropriately, not anxious, not encephalopathic, thought process linear ICD10 Worksheet Patient Problems: Problems Problem Status Onset Pleural effusion, right Acute
--- NOTE | 2017-04-08 20:10 | SOAPPROG ---
SOAP Progress Note Assessment/Plan: Assessment: RLL Mass: Findings now most consistent with a dense pneumonia. Bronchoscopy yesterday showed no obvious evidence of lung cancer and pathology is negative for malignancy. Cytology is pending however I would expect this to remain negative. Will await results. Pleural effusion: Streptococcal, S/P VATS. Pathology all appears inflammatory , negative for malignancy. Pneumonia: Afebrile, WBC remains somewhat high at 11,000. No evidence of endobronchial obstruction was found on bronchoscopy, at least to the subsegmental level on the right. On ceftriaxone per Infectious Disease for Streptococcus. Smoking history: On nicotine patch. Dyspnea: Improving. Pneumonia and effusion likely major contributors, clearly has COPD/emphysema.. CAD: S/P stent May 2016. On Plavix/ASA to be restarted. Plan: Continue antibiotics and bronchopulmonary therapies. Continue present care. Await cytologies. Consider discharge home tomorrow on ceftriaxone, with clinical follow-up and x-rays as an outpatient with myself and ID. Will get a two view chest x-ray tomorrow prior to discharge. Subjective: Doing well, intermittent cough, with some mucus. Chest pain improved Objective: Vital Signs Temp Pulse Resp BP Pulse Ox 36.6 C 63 16 92/48 L 93 04/08/17 15:02 04/08/17 15:36 04/08/17 15:02 04/08/17 15:36 04/08/17 15:02 Microbiology 04/05/17 15:00 Gram Stain - Final Lung Right Lower Lobe - Bronchial Washings 04/03/17 09:18 Gram Stain - Final Pleural Fluid - Swab 04/03/17 09:18 Gram Stain - Final Pleural Fluid - Swab 04/01/17 13:20 Gram Stain - Final Pleural Fluid - Aspirate Anaerobic Culture - Final Streptococcus Intermedius Laboratory Results 04/07/17 04:31 04/08/17 04:55 04/07/17 04/08/17 04/09/17 05:59 05:59 05:59 Intake Total 350 1450 850 Output Total 895 51 6628 Balance -320 1420 -300 PT 15.2 SEC (12.0-15.0) H 03/31/17 13:00 INR 1.18 (0.83-1.16) H 03/31/17 13:00 Physical Exam - Physical Exam General Appearance: alert, no apparent distress EENT: other (Nasal cannula at 2 L) Neck: normal inspection Respiratory: decreased breath sounds (Bilaterally), rales (Right base), No rhonchi (Some central congestion with cough) Cardiac/Chest: regular rate, rhythm Abdomen: normal bowel sounds, non-tender, soft Skin: warm/dry Extremities: No pedal edema Neuro/Psych: no motor/sensory deficits, No cognition abnormalities ICD10 Worksheet Patient Problems: Problems Problem Status Onset Pleural effusion, right Acute
[2017-04-09 05:17] LABS: ADD DIFF? YES; ADD MORPH? NO; ADD SCAN? NO; ATYPICAL LYMPHOCYTE FLAG 0 (0-99); FRAGMENT RBC FLAG 0 (0-99); HEMATOCRIT 29.8 % (40.0-51.0); HEMOGLOBIN 10.2 g/dL (13.7-17.5); LEFT SHIFT FLG 20 (0-99); LIPEMIA HEMOLYSIS FLAG 90 (0-99); MEAN CELL HEMOGLOBIN 32.1 pg (27.9-34.1); MEAN CELL HEMOGLOBIN CONCENTR. 34.2 g/dL (32.4-36.7); MEAN CELL VOLUME 93.7 fL (81.5-99.8); MEAN PLATELET VOLUME 8.8 fL (8.7-11.7); PLATELET CLUMPS FLAG 0 (0-99); PLATELET COUNT 336 10^3/uL (150-400); RED BLOOD CELL COUNT 3.18 10^6/uL (4.40-6.38); RED CELL DISTRIBUTION WIDTH 13.4 % (11.5-15.2)
[2017-04-09 05:47] LABS: ALANINE AMINOTRANSFERASE 121 IU/L (21-72); ALBUMIN 2.1 g/dL (3.5-5.0); ALKALINE PHOSPHATASE 174 IU/L (38-126); ANION GAP 7 mEq/L (8-16); ASPARTATE AMINOTRANSFERASE 61 IU/L (17-59); BILIRUBIN,TOTAL 0.4 mg/dL (0.1-1.4); BILIRUBIN-CONJUGATED 0.1 mg/dL (0.0-0.5); BILIRUBIN-UNCONJUGATED 0.3 mg/dL (0.0-1.1); CALCIUM 7.6 mg/dL (8.5-10.4); CARBON DIOXIDE 29 mEq/l (22-31); CHLORIDE 103 mEq/L (97-110); CREATININE 0.6 mg/dL (0.7-1.3); GLOMERULAR FILTRATION RATE > 60; GLUCOSE 91 mg/dL (70-100); POTASSIUM 4.5 mEq/L (3.5-5.2); SODIUM 139 mEq/L (134-144); TOTAL PROTEIN 4.3 g/dL (6.3-8.2)
[2017-04-09 05:51] LABS: MICROCYTES 1+; PLATELET ESTIMATE ADEQUATE (ADEQ)
[2017-04-09] MEDS: oxyCODONE IR 5 MG TAB PO PRN ×2 (10:08→21:46)
[2017-04-09] MEDS: ASPIRIN 81 MG CHEWABLE TAB PO SCH (10:08)
[2017-04-09] MEDS: CLOPIDOGREL BISULFATE 75 MG TAB PO SCH (10:08)
[2017-04-09] MEDS: NICOTINE 14 MG/24 HR PATCH TD SCH (10:09)
[2017-04-09] MEDS: ENOXAPARIN 40 MG/0.4 ML SYR SC SCH (10:09)
--- NOTE | 2017-04-09 17:12 | HOSPPROG ---
Hospitalist Progress Note Assessment/Plan: * Right sided empyema due to RLL pneumonia - strep intermedius s/p VATS - chest tubes out -cytology negative - no evidence for mass -IV ceftriaxone - WBC increasing - will follow * Increased LFT - improving -follow * Acute respiratory failure -still quite SOB at night - will need home O2 * CAD/stent 05/2016 -resume ASA/Plavix * COPD * Tobacco dependence - patch Subjective: SOB at night when he lies flat. Objective: Vital Signs Temp Pulse Resp BP Pulse Ox 37.1 C 62 20 102/64 92 04/09/17 15:28 04/09/17 15:28 04/09/17 15:28 04/09/17 15:28 04/09/17 15:28 Microbiology 04/05/17 15:00 Gram Stain - Final Lung Right Lower Lobe - Bronchial Washings 04/03/17 09:18 Gram Stain - Final Pleural Fluid - Swab 04/03/17 09:18 Gram Stain - Final Pleural Fluid - Swab 04/01/17 13:20 Gram Stain - Final Pleural Fluid - Aspirate Anaerobic Culture - Final Streptococcus Intermedius Laboratory Results 04/09/17 05:05 04/09/17 05:05 04/08/17 04/09/17 04/10/17 05:59 05:59 05:59 Intake Total 1450 1300 460 Output Total 30 1400 Balance 1420 -100 460 PT 15.2 SEC (12.0-15.0) H 03/31/17 13:00 INR 1.18 (0.83-1.16) H 03/31/17 13:00 d/w Dr. Ray - he think effusion will take some time to reabsorb - ok to discharge CXR viewed, my personal interpretation is - persistent moderate to large effusion - Physical Exam Constitutional: no apparent distress, appears nourished, not in pain Cardiovascular: regular rate and rhythym, no murmur, rub, or gallop Respiratory: no respiratory distress, no rales or rhonchi, clear to auscultation Gastrointestinal: normoactive bowel sounds, soft, non-tender abdomen, no palpable masses Skin: no rashes or abrasions, no fluctuance, no induration Neurologic: AAOx3, sensation intact bilaterally Psychiatric: interacting appropriately, not anxious, not encephalopathic, thought process linear ICD10 Worksheet Patient Problems: Problems Problem Status Onset Pleural effusion, right Acute
[2017-04-09 19:29] VITALS: RESP 16
[2017-04-10 05:31] LABS: ADD DIFF? YES; ADD MORPH? NO; ADD SCAN? NO; ATYPICAL LYMPHOCYTE FLAG 10 (0-99); FRAGMENT RBC FLAG 0 (0-99); HEMOGLOBIN 10.5 g/dL (13.7-17.5); LEFT SHIFT FLG 20 (0-99); LIPEMIA HEMOLYSIS FLAG 90 (0-99); MEAN CELL HEMOGLOBIN 32.7 pg (27.9-34.1); MEAN CELL VOLUME 93.5 fL (81.5-99.8); MEAN PLATELET VOLUME 8.9 fL (8.7-11.7); PLATELET CLUMPS FLAG 0 (0-99); PLATELET COUNT 343 10^3/uL (150-400); RED BLOOD CELL COUNT 3.21 10^6/uL (4.40-6.38); RED CELL DISTRIBUTION WIDTH 13.6 % (11.5-15.2)
[2017-04-10 05:43] LABS: ANION GAP 7 mEq/L (8-16); CALCIUM 7.7 mg/dL (8.5-10.4); CARBON DIOXIDE 24 mEq/l (22-31); CHLORIDE 106 mEq/L (97-110); CREATININE 0.7 mg/dL (0.7-1.3); GLOMERULAR FILTRATION RATE > 60; GLUCOSE 87 mg/dL (70-100); POTASSIUM 4.3 mEq/L (3.5-5.2); SODIUM 137 mEq/L (134-144)
[2017-04-10 05:55] LABS: POLYCHROMASIA 1+
[2017-04-10 05:56] LABS: PLATELET ESTIMATE ADEQUATE (ADEQ)
[2017-04-10 07:35] VITALS: BP 97/53; PULSE 67; TEMP 99
[2017-04-10 11:17] VITALS: O2SAT 86
[2017-04-10] MEDS: CLOPIDOGREL BISULFATE 75 MG TAB PO SCH (11:27)
[2017-04-10] MEDS: ASPIRIN 81 MG CHEWABLE TAB PO SCH (11:27)
[2017-04-10] MEDS: oxyCODONE IR 5 MG TAB PO PRN (11:27)
--- NOTE | 2017-04-10 11:30 | PDIAF ---
- Diagnosis Diagnosis: R sided streptococcal pulmonary empyema Code Status: Do Not Resuscitate - Medication Management Discharge Medications: Medications to Continue on Transfer Clopidogrel Bisulfate [Plavix (*)] 75 mg PO DAILY 03/14/17 [Last Taken 03/30/17] Aspirin [Aspirin 81mg (*)] 81 mg PO DAILY 03/31/17 [Last Taken 03/30/17] Atorvastatin Calcium [Lipitor 10 mg (*)] 10 mg PO HS 03/31/17 [Last Taken ] Ipratropium/Albuterol [Combivent Respimat Inhal [place]ute(*)] 1 inh IH QID #1 mdi [Last Taken Unknown] cefTRIAXone [Rocephin] 2 gm IV DAILY #30 vial 04/10/17 [Last Taken Unknown] oxyCODONE IR [Oxycodone Ir (*)] 5 - 10 mg PO Q4 PRN #30 tab 04/10/17 [Last Taken Unknown] Longterm Antibiotics: ceftriaxone 2gm IV daily 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 PICC Care - Routine: Yes - Orders Services needed: Home Care, Registered Nurse, Physical Therapy, Occupational Therapy Home Care Face to Face: I certify that this patient was under my care and that I had the required [id number] encounter meeting the encounter requirements on the discharge day. My findings support the fact that the patient is homebound as defined in Home Care Face to Face Continued: CMS Chapter 7 Medicare Benefits Manual 30.1.1 , The condition of the patient is such that there exists a normal inability to leave home and consequently, leaving home would require a considerable and taxing effort. Oxygen: 2L Diet Recommendation: no restrictions on diet - Labs/Radiology CBC w/diff Date: 04/11/17 (weekly Tuesday) CMP Date: 04/11/17 (weekly Tuesday) Call or Fax Lab and Imaging Results to: DR Jaylene Delatorre [phone] - Follow Up Care Current Providers and Referrals: Clement Metcalf MD [Medical Doctor] - (12-14 days) Jaylene Delatorre MD [Medical Doctor] - 04/14/17 1:00 pm CLEMENT VELEZ [Primary Care Provider] - Tiago Ray MD [Medical Doctor] - follow up in 2 weeks (Repeat CXR before visit)
--- NOTE | 2017-04-10 11:30 | PDHOMEO2F ---
Home Oxygen Face to Face Home Orders: I certify that a physician or a nurse practitioner or physician's enrichment assistant has had a [id number] encounter with this patient on the date of this order due to the diagnosis listed, which relates to the primary reason the patient requires home oxygen. Alternative treatments have been tried, or considered, and deemed ineffective. It is anticipated that supplemental oxygen will result in improvement with treatment. Home oxygen qualifying diagnosis: COPD SpO2 on room air (%): 86 Frequency of home oxygen needed: continuous Home oxygen liters per minute: 2 Home oxygen delivery device: nasal cannula Concentrator: Yes E-tanks for mobility and back up: Yes If ordering portable O2, is the patient mobile in the home?: Yes I certify that, based on these findings, the home oxygen is medically necessary for this patient for the following length of time. Length of time home oxygen needed: 1 month
[2017-04-10] MEDS: ENOXAPARIN 40 MG/0.4 ML SYR SC SCH (11:34)
[2017-04-10] MEDS: NICOTINE 14 MG/24 HR PATCH TD SCH (11:35)
--- NOTE | 2017-04-10 12:16 | ASMTCMCOM ---
CM Note CM Note Notes: Per MD patient medically cleared for dc to home with oxygen, [facility] and [facility] infusion services, Patient's Address and contact number confirmed Spoke with Pily Tariq RN [facility] and [place] pharmacist at [place] to alert them of discharge. All orders updated via allscripts. Plan home with oxygen, home health and home infusion company. Cm available if other needs arise. Date Signed: 04/10/2017 12:16 PM Electronically Signed By:Paris Willoughby RN
--- NOTE | 2017-04-10 15:45 | SOAPPROG ---
SOAP Progress Note Assessment/Plan: Assessment: RLL Mass: Findings now most consistent with a dense pneumonia. VATS pathology negative for malignancy, consistent with empyema/infection. Bronchoscopy showed no obvious evidence of lung cancer and pathology is negative for malignancy. Cytology is still pending however I would expect this to remain negative. Pleural effusion: Streptococcal, S/P VATS. Pathology all appears inflammatory , negative for malignancy. Pneumonia: Afebrile, WBC remains somewhat high at 10,000. No evidence of endobronchial obstruction was found on bronchoscopy, at least to the 1st subsegmental level on the right. On ceftriaxone per Infectious Disease for Streptococcus. Smoking history: On nicotine patch. Dyspnea: Improving. Pneumonia and effusion likely major contributors, clearly has COPD/emphysema... CAD: S/P stent May 2016. On Plavix/ASA. Plan: For discharge home today. I will follow him back in the office with a new chest x-ray in approximately 3 weeks. He will need oxygen at discharge. Inhaled therapies do not seem to be of benefit. Outpatient pulmonary function studies will be done at some point. Minimizing smoking or cessation is encouraged. Subjective: Doing well, ready to go home. Up walking halls. Objective: Vital Signs Temp Pulse Resp BP Pulse Ox 37.2 C 67 16 97/53 L 86 L 04/10/17 07:34 04/10/17 07:34 04/10/17 07:34 04/10/17 07:34 04/10/17 11:16 Microbiology 04/05/17 15:00 Gram Stain - Final Lung Right Lower Lobe - Bronchial Washings Laboratory Results 04/10/17 05:20 04/10/17 05:20 04/09/17 04/10/17 04/11/17 05:59 05:59 05:59 Intake Total 1300 460 Output Total 1400 Balance -100 460 PT 15.2 SEC (12.0-15.0) H 03/31/17 13:00 INR 1.18 (0.83-1.16) H 03/31/17 13:00 Cytology still pending Physical Exam - Physical Exam General Appearance: alert, no apparent distress EENT: other (Oxygen in place at 1-2 L. Room air saturation at rest is 86%) Neck: normal inspection Respiratory: lungs clear, decreased breath sounds (At right base, with dullness , few rales.), rales, prolonged expiration, No rhonchi, No wheezing Cardiac/Chest: regular rate, rhythm Abdomen: normal bowel sounds, non-tender, soft Skin: normal color, warm/dry Extremities: No pedal edema Neuro/Psych: no motor/sensory deficits, No cognition abnormalities ICD10 Worksheet Patient Problems: Problems Problem Status Onset Pleural effusion, right Acute
--- NOTE | 2017-04-10 16:22 | ASDISCHSUM ---
Discharge Information Plan Status:IV ABX/Infusion Medically Cleared to Leave:04/09/2017 Discharge Date:04/10/2017 03:08 PM CM D/C Disposition:Home Health Service ADT D/C Disposition:Home Health Service Projected Discharge Date:04/10/2017 11:00 AM Transportation at D/C:Friend Discharge Delay Reason: Follow-Up Date:04/10/2017 11:00 AM Discharge Slot: Final Diagnosis: Placement Information Referral Type:Home Infusion Referral ID:[id number] Provider Name:Rhina WINKLER/[facility] Address 1[facility] [address] [facility] Address 2:[facility] City:[place] Selection Factors: State:[place] Referral Type:*Home Health Care Services Referral ID:[id number] Provider Name:[facility] Address 1:[address] , [facility] [address] Address 2: City:[place] Selection Factors: State:[place] Patient Contact Information Contact Name:JUAN ALBERTO Relationship:Other Address:[address] Work Phone: City:[place] Alternate Phone: State/Zip Code:[place] [address] Email: Financial Information Financial Class: Primary Plan Desc:MEDICARE INPATIENT Primary Plan Number:[id number] Secondary Plan Desc: Secondary Plan Number: Assessment Information LACE LACE Acuity / Level of Care Answers: Was the patient admitted to hospital via the emergency department? Yes: Comorbidities - select Answers: Chronic pulmonary disease all that apply Any tumor (including lymphoma or leukemia) Emergency dept visits in Answers: 2 last 6 months Score: 9 Date Signed: 03/31/2017 03:51 PM Electronically Signed By:Bernadette Kemp RN [facility] Progress Note CM Note CM Note Notes: Reviewed chart and discussed w/RN. Pt admitted w/RLL mass. He will go for bonchoscopy today. He normally lives alone, has son in [place]. DC needs not clear yet. CM will follow. Date Signed: 04/01/2017 11:46 AM Electronically Signed By:Lien Levin RN [facility] CM Progress Note CM Note CM Note Notes: Patient had a VATS procedure, possible lung CA vs PNA path pending. Possible Bronc for more info. Therapies not involved. CM to follow for discharge needs. Date Signed: 04/04/2017 05:16 PM Electronically Signed By:Suzette Salas LCSW [facility] CM Progress Note CM Note CM Note Notes: 04/06/2017 Case Management Note Met w/pt. Pt lives alone but has strong community support. His neighbors have planned a meal brigade and will supply meals every 2-3 days indefinately. He has support from his son Carmelo. 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 After discussion, pt requested infusion services referrals to [facility], [email or web address] and [facility]. He requested financial information from the companies regarding co pays. 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 [facility] claire supply the certified pathology assistant. Confirmed acceptance today. Case Management will continue to follow. Date Signed: 04/06/2017 04:42 PM Electronically Signed By:Marlys Andrew RN [facility] MELINDA Progress Note MELINDA Note MELINDA Note Notes: CM met w/ pt for dispo planning. CM informed pt the cost of home infusion vs outpatient infusion. CM spoke w/ LEONILA Altamirano regarding d/c POC. Pt is scheduled to have a PICC line placed at some point. Pt will need 4 weeks of IV antibiotics daily. MELINDA contacted [email or web address] to assess pt for Medicaid qualifying medicare benefits (QMB). Pt does not qualify. Pt has selected [facility], as it is the cheapest option at this point. [facility] will contact pt directly to go over admission process. MELINDA notified [facility] of possible tomorrow for tomorrow. CM to follow. Plan: Rhina w/ LEONILA CRUM Date Signed: 04/07/2017 03:56 PM Electronically Signed By:PARISH Deluna [facility] MELINDA Progress Note MELINDA Note MELINDA Note Notes: 04/08/2018 Case Management Note [facility] rep here for pt teaching for IV antibiotics. Pt is too fatigued to participate in teaching at this time. Faxed updates to [facility]. Case Management d/c poc: Home with SKYLA RN and IV antibiotics supplied by [facility] when medically stable. Case Management to follow. Date Signed: 04/08/2017 11:03 AM Electronically Signed By:Marlys Andrew RN [facility] CM Progress Note CM Note CM Note Notes: Per MD patient medically cleared for dc to home with oxygen, [facility] and [facility] infusion services, Patient's Address and contact number confirmed Spoke with Pily Tariq RN [facility] and Lorelei pharmacist at [facility] to alert them of discharge. All orders updated via [employer] Plan home with oxygen, home health and home infusion company. Cm available if other needs arise. Date Signed: 04/10/2017 12:16 PM Electronically Signed By:Paris Willoughby RN Intervention Information
--- NOTE | 2017-04-11 01:12 | GDS ---
[f rep st] DISCHARGE SUMMARY DISCHARGE DIAGNOSES: 1. Right-sided empyema, with Streptococcus intermedius, status post VATS. 2. Dense right lower lobe pneumonia. 3. Increased liver function tests. 4. Acute respiratory failure. 5. Coronary artery disease, status post stents May 2016. 6. Chronic obstructive pulmonary disease. 7. Tobacco dependence. HISTORY: The patient is a 66-year-old male, who had subacute onset of a right lower lobe pneumonia, which initially was interpreted on CAT scan to be a possible mass. In the end we had discovered it t o just be a dense consolidation, and there is no evidence of mass. He had an associated pleural effu nito, which was worsening, and he presented to the ER when his right-sided pleuritic chest pain becam e acutely worse. Thoracentesis showed a pH of 6.7, consistent with empyema and grew Strep intermediu s. Surgery was consulted, and he underwent a VATS procedure with Dr. Graham. Cytology on the fluid is also negative. Infectious Disease saw him in consultation and is planning a prolonged course of I V ceftriaxone. Patient continues to require oxygen at the time of hospital discharge. He has a persistent right ple ural effusion, and I reviewed this with Dr. Tiago Ray who feels that this will resorb with time. White blood cell count did rise prior to discharge but is now coming down again and will be followed closely as an outpatient by Infectious Disease. LFTs were elevated on presentation with negative abd ominal ultrasound. I suspect this is inflammation due to the adjacent empyema and anticipate these w ill resolve down to normal. Smoking cessation was strongly advised. DISCHARGE MEDICATIONS: Please see computerized record for full detailed list. New medications: 1. Ceftriaxone 2 g IV daily for 4 weeks. 2. Oxycodone IR 5-10 mg every 4 hours as needed for persistent pleuritic chest pain. 3. Combivent 1 puff 4 times a day. He will continue his aspirin, Plavix, and Lipitor as he was prior to admission. ADDITIONAL DISCHARGE INSTRUCTIONS: 1. Home health for PICC line care and IV antibiotics with followup with Dr. Jaylene Meadows. 2. Repeat chest x-ray in 2-3 weeks and follow up with Dr. Tiago Ray. 3. Follow up with Dr. Metcalf of General Surgery. 4. Home oxygen 2 L continuously until room air saturations greater than equal to 90%. 5. Smoking cessation strongly advised, in addition to education regarding the risks of smoking while on oxygen. Greater than 30 minutes' time was spent arranging this discharge. Patient was seen and examined by brendan jesus on the day of discharge. /[id number]/MODL
== END 2017-04-10 15:08 | disposition home health service (06) | DRG 163 ==
LOC: EDUNIT# → EDBD → F1N 18:47 → F2N 04-03 09:43 → F2W 04-05 20:22
PROVIDERS: ADMIT Internal Medicine; ATTEND Internal Medicine
DX: J86.9 Pyothorax without fistula (principal); J18.8 Other pneumonia, unspecified organism; J96.00 Acute respiratory failure, unspecified whether with hypoxia or hypercapnia; J90 Pleural effusion, not elsewhere classified; B95.4 Other streptococcus as the cause of diseases classified elsewhere; I25.10 Atherosclerotic heart disease of native coronary artery without angina pectoris; J44.9 Chronic obstructive pulmonary disease, unspecified; F17.200 Nicotine dependence, unspecified, uncomplicated; Z66 Do not resuscitate
CPT/HCPCS: 96374; 97161-GP; 97165-GO; C1751; G0472; G8978-GP-CH; G8979-GP-CH; G8980-GP-CH; G8987-GO-CI; G8988-GO-CI; G8989-GO-CI; J0171; J0295; J0696; J1100; J1170; J1335; J1650; J1885; J1940; J2001; J2250; J2370; J2405; J2704; J3010; Q9967

== ENCOUNTER → 2017-04-22 | Outpatient (CLI) | payer OTHER | LOC: FIMAGING 11:40 | PROVIDERS: ATTEND Chiropractor | DX: J86.9 Pyothorax without fistula (principal); B95.5 Unspecified streptococcus as the cause of diseases classified elsewhere ==

== ENCOUNTER → 2017-04-28 | Day surgery (SDC) | payer OTHER | END | disposition home or self-care (01) | LOC: FIMAGING 07:59 | PROVIDERS: ATTEND Radiology Diagnostic Radiology | PROC: 02HV33Z Insertion of Infusion Device into Superior Vena Cava, Percutaneous Approach (ICD-10-PCS; principal; 2017-04-28) | PROC: B5181ZA Fluoroscopy of Superior Vena Cava using Low Osmolar Contrast, Guidance (ICD-10-PCS; principal; 2017-04-28) | DX: Z79.2 Long term (current) use of antibiotics (principal); J86.9 Pyothorax without fistula; J18.9 Pneumonia, unspecified organism | CPT/HCPCS: 36580; 77001; C1751 ==

== ENCOUNTER → 2017-05-03 | Outpatient (CLI) | payer OTHER ==
[~2017-05-03] MED LIST: IOPAMIDOL (ISOVUE-300) 100 ML BTL ONE
== END ==
LOC: FIMAGING 14:21
PROVIDERS: ATTEND Internal Medicine Infectious Disease
DX: J86.9 Pyothorax without fistula (principal); J98.11 Atelectasis; J92.9 Pleural plaque without asbestos; J98.59 Other diseases of mediastinum, not elsewhere classified
CPT/HCPCS: 71260; Q9967

== ENCOUNTER → 2017-05-24 | Outpatient (CLI) | payer OTHER | LOC: FIMAGING 10:57 | PROVIDERS: ATTEND Internal Medicine Infectious Disease | DX: R91.8 Other nonspecific abnormal finding of lung field (principal); Z79.2 Long term (current) use of antibiotics ==